=== PATIENT | female | born 1985 | race Caucasian/White ===

== ENCOUNTER 2016-09-29 20:16 | Inpatient (IN) | payer OTHER ==
[2016-09-29 20:42] VITALS: BMI 26.9
--- NOTE | 2016-09-29 21:26 | HP ---
COWS - Scale Resting Pulse: 0= [place] 80 or Below Sweatin= Chills/Flushing Restless Observation: 3= Extraneous Movement Pupil Size: 0= Normal to Room Light Bone or Joint Aches: 2= Severe Diffuse Aches Runny Nose/ Eye Tearin= Nasal Congestion GI Upset > 30mins: 0= None Tremor Observation: 2= Slight Tremor Visible Yawning Observation: 2= >3x During Session Anxiety or Irritability: 2=Irritable/Anxious Goose Flesh Skin: 3=Piloerection COWS Score: 16 CIWA Score - CIWA Score Nausea/Vomitin Muscle Tremors: 3 Anxiety: 4-Mod. Anxious/Guarded Agitation: 4-Moderately Restless Paroxysmal Sweats: No Perspiration Orientation: 0-Oriented Tacttile Disturbances: 0-None Auditory Disturbances: 0-None Visual Disturbances: 0-None Headache: 1-Very Mild CIWA-Ar Total Score: 14 Admission ROS S - HPI Chief Complaint: WITHDRAWAL SYMPTOMS Allergies/Adverse Reactions: Allergies Allergy/AdvReac Type Severity Reaction Status Date / Time amoxicillin [Amoxicillin] Allergy Severe Rash Verified 03/25/16 11:51 Penicillins Allergy Severe Rash Verified 03/25/16 11:51 History of Present Illness: 30 Y.O. WOMAN WITH AN EXTENSIVE HISTORY OF DRUG AND ALCOHOL DEPENDENCE. SHE WAS PREVIOUSLY HERE FOR DETOX IN 02/2016. SHE REPORTS HAVING A YEAR OF SOBRIETY IN THE PAST. Exam Limitations: No Limitations - Ebola screening Have you traveled outside of the country in the last 21 days: No (N) Have you had contact with anyone from an Ebola affected area: No Have you been sick,other than usual withdrawal symptoms: No Do you have a fever: No - Review of Systems Constitutional: Chills EENT: reports: No Symptoms Reported Respiratory: reports: No Symptoms reported Cardiac: reports: No Symptoms Reported GI: reports: Constipated : reports: No Symptoms Reported Musculoskeletal: reports: Back Pain Integumentary: reports: Bruising Neuro: reports: Tremors Endocrine: reports: No Symptoms Reported Hematology: reports: Anemia Psychiatric: reports: Orientated x3, Depressed Other Systems: Reviewed and Negative Patient History - Patient Medical History Hx Anemia: Yes Hx Asthma: No Hx Chronic Obstructive Pulmonary Disease (COPD): No Hx Cancer: No Hx Cardiac Disorders: No Hx Congestive Heart Failure: No Hx Hypertension: No Hx Hypercholesterolemia: No Hx Pacemaker: No HX Cerebrovascular Accident: No Hx Seizures: No Hx Dementia: No Hx Diabetes: No Hx Gastrointestinal Disorders: Yes (DYPEPSIA ) Hx Liver Disease: No Hx Genitourinary Disorders: No Hx Sexually Transmitted Disorders: No Hx Renal Disease (ESRD): No Hx Thyroid Disease: No Hx Human Immunodeficiency Virus (HIV): No (NEGATIVE HX) Hx Hepatitis C: No Hx Depression: Yes (not on any meds now) Hx Suicide Attempt: No (DENIES) Hx Bipolar Disorder: No Hx Schizophrenia: No - Patient Surgical History Past Surgical History: Yes Hx Neurologic Surgery: No Hx Cataract Extraction: No Hx Cardiac Surgery: No Hx Lung Surgery: No Hx Breast Surgery: No Hx Breast Biopsy: No Hx Abdominal Surgery: No Hx Appendectomy: No Hx Cholecystectomy: No Hx Genitourinary Surgery: No Hx Section: No Hx Orthopedic Surgery: No Other Surgical History: DILATATION AND CURETTAGE-ABORTIONS X 2 IN 2009 AND 2011 Anesthesia Reaction: No - PPD History Previous Implant?: Yes Documented Results: Negative w/proof Implanted On Prior [facility] Admission?: Yes Date: 03/27/16 Results: 0 mm PPD to be Administered?: No - Reproductive History Patient is a Female of Child Bearing Age (11 -55 yrs old): Yes Last Menstrual Period: 08/14/16 (states her menstruation is irregular when she "uses") Patient : No - Smoking Cessation Smoking history: Current every day smoker Have you smoked in the past 12 months: Yes Aproximately how many cigarettes per day: 20 Hx Chewing Tobacco Use: No Initiated information on smoking cessation: Yes 'Breaking Loose' booklet given: 09/29/16 - Substance & Tx. History Hx Alcohol Use: Yes Hx Substance Use: Yes Substance Use Type: Alcohol, Cocaine, Heroin Hx Substance Use Treatment: Yes (DETOX AND REHAB ) - Substances Abused Alcohol Route: Oral Frequency: Daily Amount used: 1/2 GALLON OF LIQUOR Age of first use: 14 Date of Last Use: 09/29/16 Heroin Route: Injection Frequency: Daily Amount used: 30 BAGS Age of first use: 24 Date of Last Use: 09/29/16 Cocaine Route: Injection Frequency: 1-2 times per week Amount used: $20 Age of first use: 29 Date of Last Use: 09/27/16 Family Disease History - Family Disease History Family Disease History: [place]: Father (HX THROAT CANCER-ALIVE), Mother (HX HYPOGLYCEMIA; BREAST CANCER--ALIVE), Other: Father, Mother Admission Physical Exam [facility] - Vital Signs Vital Signs: Vital Signs - 24 hr 09/29/16 20:37 Temperature 97.4 F L Pulse Rate 80 Respiratory 18 Rate Blood Pressure 118/63 - Physical General Appearance: Yes: Tremorous, Irritable, Sweating, Anxious HEENTM: Yes: EOMI, Hearing grossly Normal, Normal ENT Inspection, Normocephalic , Normal Voice Respiratory: Yes: Chest Non-Tender, Lungs Clear, Normal Breath Sounds Neck: Yes: No masses,lesions,Nodules, Supple, Trachea in good position Breast: Yes: Breast Exam Deferred Cardiology: Yes: Regular Rhythm, Regular Rate, S1, S2 Abdominal: Yes: Normal Bowel Sounds, Non Tender, Flat, Soft Genitourinary: Yes: Within Normal Limits Back: Yes: Normal Inspection Musculoskeletal: Yes: full range of Motion, Gait Steady, Back pain Extremities: Yes: Normal Capillary Refill, Normal Inspection, Normal Range of Motion, Non-Tender Neurological: Yes: Fully Oriented, Alert, Normal Mood/Affect, Normal Response Integumentary: Yes: Track [place] Lymphatic: Yes: Within Normal Limits - Diagnostic (1) Nicotine dependence Current Visit: Yes Status: Chronic (2) Cocaine dependence Current Visit: Yes Status: Chronic Qualifiers: Substance use status: uncomplicated Qualified Code(s): F14.20 - Cocaine dependence, uncomplicated (3) GERD (gastroesophageal reflux disease) Current Visit: Yes Status: Chronic (4) Opioid dependence with withdrawal Current Visit: Yes Status: Chronic (5) Alcohol dependence with uncomplicated withdrawal Current Visit: Yes Status: Chronic Cleared for Admission [facility] - Detox or Rehab [facility] Level of Care: Medically Managed Detox Regimen/Protocol: Methadone/Librium [facility] Breath Alcohol Content Breath Alcohol Content: 0 Urine Pregancy Test - Result Urine Test Results: Negative- NO Line Present Urine Drug Screen - Results Drug Screen Negative: No Urine Drug Screen Results: MAVIS-Cocaine, OPI-Opiates, OXY-Oxycodone
[2016-09-29] MEDS ORDERED: METHADONE HCL 10 MG TABLET (FOR DETOX USE ONLY) PO ONE ×2 (21:36→23:00)
[2016-09-29] MEDS ORDERED: LOPERAMIDE HCL 2 MG CAPSULE PO PRN (21:36)
[2016-09-29] MEDS ORDERED: guaiFENesin/D-METHORPHAN HB 10 ML UNIT-DOSE CUPS PO PRN (21:36)
[2016-09-29] MEDS ORDERED: ACETAMINOPHEN 325 MG TABLET (FP) PO PRN (21:36)
[2016-09-29] MEDS ORDERED: MAG HYDROX/AL HYDROX/SIMETH 30 ML UNIT-DOSE CUP PO PRN (21:36)
[2016-09-29] MEDS ORDERED: MAGNESIUM HYDROX 2400MG/30ML ORAL SUSPENSION 30 ML CUP PO PRN (21:36)
[2016-09-29] MEDS ORDERED: MENTHOL/PHENOL 1 EACH UD MM PRN (21:36)
[2016-09-29] MEDS ORDERED: MAGNESIUM CITRATE 300 ML BOTTLE PO PRN (21:36)
[2016-09-29] MEDS ORDERED: P-EPHED 60MG/TRIPROLIDI 2.5MG TABLET PO PRN (21:36)
[2016-09-29] MEDS ORDERED: METHADONE HCL 10 MG TABLET (FOR DETOX USE ONLY) ONE (23:53)
[2016-09-29] MEDS: chlordiazePOXIDE HCL 25 MG CAPSULE PO SCH (23:54)
[2016-09-29] MEDS: NICOTINE POLACRILEX 2 MG GUM BC PRN (23:55)
[2016-09-29] MEDS: diphenhydrAMINE HCL 50 MG CAPSULE PO PRN (23:58)
[2016-09-30] MEDS: chlordiazePOXIDE HCL 25 MG CAPSULE PO SCH ×4 (05:00→22:11)
[2016-09-30] MEDS: chlordiazePOXIDE HCL 25 MG CAPSULE PO PRN ×2 (07:35→13:49)
[2016-09-30] MEDS: NICOTINE POLACRILEX 2 MG GUM BC PRN ×4 (07:35→20:26)
--- NOTE | 2016-09-30 08:52 | PN ---
S CIWA - CIWA Score Nausea/Vomitin Muscle Tremors: 3 Anxiety: 3 Agitation: 3 Paroxysmal Sweats: 1-Minimal Palms Moist Orientation: 0-Oriented Tacttile Disturbances: 1-Very Mild Itch/Numbness Auditory Disturbances: 1-Very Mild Visual Disturbances: 1-Very Mild Sensitivity Headache: 2-Mild CIWA-Ar Total Score: 18 BHS Progress Note (SOAP) Subjective: ALERT,IRRITABLE,ANXIOUS,INTERRUPTED SLEEP,TREMOR,PAIN IN THE BODY AND BACK, TREMOR Objective: 09/30/16 08:50 Vital Signs Temperature 97.6 F 09/30/16 06:19 Pulse Rate 60 09/30/16 06:19 Respiratory Rate 16 09/30/16 06:19 Blood Pressure 100/60 09/30/16 06:19 O2 Sat by Pulse Oximetry (%) 09/30/16 08:50 EKG NSR,NORMAL ECGLABS PENDING Assessment: 09/30/16 08:51 WITHDRAWAL SYMPTOM Plan: CONTINUE DETOX
[2016-09-30] MEDS ORDERED: METHADONE HCL 10 MG TABLET (FOR DETOX USE ONLY) PO SCH (10:00)
[2016-09-30] MEDS: NICOTINE 21 MG/24 HOURS TOPICAL PATCH TD SCH (10:04)
[2016-09-30] MEDS: PRENATAL VITAMINS W/ FOLIC ACID TABLET (FP) PO SCH (10:04)
[2016-09-30 11:24] LABS: MCH 27.5 pg (25.7-33.7); MCHC 33.4 g/dl (32.0-36.0); MEAN CELL VOLUME 82.3 fl (80-96); MEAN PLT VOLUME 8.6 fl (7.5-11.1); PLATELET COUNT 207 K/MM3 (134-434); RDW 14.8 % (11.6-15.6); WHITE BLOOD COUNT 6.3 K/mm3 (4.0-10.0)
[2016-09-30 11:31] LABS: ALBUMIN 3.1 g/dl (3.4-5.0); ALK PHOS 77 U/L (45-117); ANION GAP 8 (8-16); BILIRUBIN,TOTAL 0.4 mg/dL (0.2-1.0); CALCIUM 8.4 mg/dL (8.5-10.1); CO2 28 mmol/L (21-32); GLUCOSE,RANDOM 80 mg/dL (74-106); SGOT/AST 19 U/L (15-37); SGPT/ALT 17 U/L (12-78); TOT PROT 7.2 g/dl (6.4-8.2)
[2016-09-30 12:56] LABS: URINE APPEARANCE TURBID; URINE BILIRUBIN NEGATIVE (NEGATIVE); URINE BLOOD NEGATIVE (NEGATIVE); URINE COLOR AMBER; URINE GLUCOSE (UA) NEGATIVE (NEGATIVE); URINE KETONE NEGATIVE (NEGATIVE); URINE NITRITE NEGATIVE (NEGATIVE); URINE PROTEIN NEGATIVE (NEGATIVE); URINE UROBILINOGEN NEGATIVE E.U./dl (0.2-1.0)
[2016-09-30 13:01] LABS: URINE LEUK ESTERASE TRACE (NEGATIVE)
[2016-09-30 13:11] LABS: URINE BACTERIA MODERATE /hpf (NONE SEEN); URINE RBC 3 /hpf (0-3); URINE WBC 23 /hpf (3-5)
[2016-09-30] MEDS: IBUPROFEN 400 MG TABLET (FP) PO PRN (13:48)
[2016-09-30 14:12] LABS: HIV 1 & 2 AB NEGATIVE; HIV 1 AGp24 NEGATIVE
--- NOTE | 2016-09-30 14:49 | CONSULT ---
[facility] Psychiatric Consult - Data Date of interview: 09/30/16 Admission source: [facility] Identifying data: Another admission to [facility] for this 30 y/o female seeking detox treatment on for alcohol,cocaine and heroin dependence.Patient is ( committed suicide four years ago),a mother of one,domiciled,unemployed and supported on Social Security benefits. Substance Abuse History: - Smoking Cessation. Smoking history: Current every day smoker. Have you smoked in the past 12 months: Yes. Aproximately how many cigarettes per day: 20. Hx Chewing Tobacco Use: No. Initiated information on smoking cessation: Yes. 'Breaking Loose' booklet given: 09/29/16. - Substance & Tx. History. Hx Alcohol Use: Yes. Hx Substance Use: Yes. Substance Use Type : Alcohol, Cocaine, Heroin. Hx Substance Use Treatment: Yes (DETOX AND REHAB ) . - Substances Abused. Alcohol. Route: Oral. Frequency: Daily. Amount used: 1/2 GALLON OF LIQUOR. Age of first use: 14. Date of Last Use: 09/29/16. Heroin. Route: Injection. Frequency: Daily. Amount used: 30 BAGS. Age of first use: 24. Date of Last Use: 09/29/16. Cocaine. Route: Injection. Frequency: 1-2 times per week. Amount used: $20. Age of first use: 29. Date of Last Use: 09/27/16. Confirmed by patient in this interview. Medical History: Patient endorses good general health.History of dilatation and curetage (abortions X 2) in 2009 and 2011. Psychiatric History: No history of psychiatric hospitalizations.Patient states that,at an inpatient rehabilitation facility in [place] (2014),she was managed on a regimen of trazodone for insomnia and gabapentin (anxiety).Ms Barlow reports that she has not taking any medication since her discharge from [facility] (02/2016).Patient states that she discharged herself from [place] rehabilitation inpatient program (referral from [facility]) and resumed the lifestyle of substance abuse.No OPD care affiliation.Distant history of suicide attempt via overdose with tylenol (age 15).Ms Barlow requests that gabapentin and trazodone be part of her current regimen of medications. Physical/Sexual Abuse/Trauma History: No reported history of sexual abuse.Lost her to a completed suicide four years ago.Patient denies nightmares or flashbacks. Additional Comment: Urine Drug Screen Results: MAVIS-Cocaine, OPI-Opiates, OXY- Oxycodone Mental Status Exam - Mental Status Exam Alert and Oriented to: Time, Place, Person Cognitive Function: Good Patient Appearance: Well Groomed Mood: Nervous, Anxious, Apprehensive Affect: Mood Congruent Patient Behavior: Fatigued, Appropriate, Cooperative Speech Pattern: Clear, Appropriate Voice Loudness: Normal Thought Process: Intact, Goal Oriented Thought Disorder: Not Present Hallucinations: Denies Suicidal Ideation: Denies Homicidal Ideation: Denies Insight/Judgement: Poor Sleep: Poorly, Difficulty falling asleep Appetite: Good Muscle strength/Tone: Normal Gait/Station: Normal Psychiatric Findings - Problem List ([place] 1, 2,3) (1) Alcohol dependence with uncomplicated withdrawal Current Visit: Yes Status: Acute (2) Cocaine dependence Current Visit: Yes Status: Acute Qualifiers: Substance use status: uncomplicated Qualified Code(s): F14.20 - Cocaine dependence, uncomplicated (3) Nicotine dependence Current Visit: Yes Status: Acute (4) Opioid dependence with withdrawal Current Visit: Yes Status: Acute (5) Drug-induced mood disorder Current Visit: Yes Status: Acute (6) Substance-induced sleep disorder Current Visit: Yes Status: Acute (7) GERD (gastroesophageal reflux disease) Current Visit: Yes Status: Chronic (8) Low back pain Current Visit: Yes Status: Chronic - Initial Treatment Plan Initial Treatment Plan: Psychoeducation.Detoxification.Medications : trazodone 50 mg po hs + gabapentin 200 mg po tid.Side effects/benefits discussed with the patient.She agrees with this plan.Observation.
[2016-09-30] MEDS: hydrOXYzine PAMOATE 50 MG CAPSULE (FP) PO PRN (20:26)
[2016-09-30] MEDS ORDERED: traZODone HCL 50 MG TABLET (FP) PO SCH (22:00)
[2016-09-30] MEDS ORDERED: GABAPENTIN 300 MG CAPSULE (FP) PO SCH (22:00)
[2016-09-30] MEDS: traZODone HCL 50 MG TABLET (FP) PO SCH (22:11)
[2016-09-30] MEDS: THIAMINE HCL 100 MG TABLET (FP) PO SCH ×2 (22:11)
[2016-09-30] MEDS: GABAPENTIN 100 MG CAPSULE (FP) PO SCH (22:11)
[2016-10-01] MEDS: chlordiazePOXIDE HCL 25 MG CAPSULE PO PRN ×2 (02:26→15:04)
[2016-10-01] MEDS: NICOTINE POLACRILEX 2 MG GUM BC PRN ×6 (02:27→22:08)
[2016-10-01] MEDS: chlordiazePOXIDE HCL 25 MG CAPSULE PO SCH ×3 (05:09→17:20)
[2016-10-01] MEDS: GABAPENTIN 100 MG CAPSULE (FP) PO SCH ×3 (06:31→22:07)
[2016-10-01] MEDS: hydrOXYzine PAMOATE 50 MG CAPSULE (FP) PO PRN ×3 (06:31→18:38)
--- NOTE | 2016-10-01 09:31 | PN ---
[facility] CIWA - CIWA Score Nausea/Vomitin Muscle Tremors: 3 Anxiety: 3 Agitation: 2 Paroxysmal Sweats: 1-Minimal Palms Moist Orientation: 0-Oriented Tacttile Disturbances: 1-Very Mild Itch/Numbness Auditory Disturbances: 1-Very Mild Visual Disturbances: 1-Very Mild Sensitivity Headache: 2-Mild CIWA-Ar Total Score: 17 BHS Progress Note (SOAP) Subjective: ALERT,IRRITABLE,ANXIOUS,INTERRUPTED SLEEP,PAIN IN THE BODY Objective: 10/01/16 09:30 Vital Signs Temperature 98.2 F 10/01/16 06:27 Pulse Rate 111 H 10/01/16 06:27 Respiratory Rate 20 10/01/16 06:27 Blood Pressure 121/75 10/01/16 06:27 O2 Sat by Pulse Oximetry (%) Laboratory Last Values WBC 6.3 K/mm3 (4.0-10.0) 09/30/16 08:00 RBC 4.09 M/mm3 (3.60-5.2) 09/30/16 08:00 Hgb 11.3 GM/dL (10.7-15.3) D 09/30/16 08:00 Hct 33.7 % (32.4-45.2) 09/30/16 08:00 MCV 82.3 fl (80-96) 09/30/16 08:00 MCHC 33.4 g/dl (32.0-36.0) 09/30/16 08:00 RDW 14.8 % (11.6-15.6) 09/30/16 08:00 Plt Count 207 K/MM3 (134-434) 09/30/16 08:00 MPV 8.6 fl (7.5-11.1) 09/30/16 08:00 Sodium 140 mmol/L (136-145) 09/30/16 08:00 Potassium 4.2 mmol/L (3.5-5.1) 09/30/16 08:00 Chloride 104 mmol/L (98-107) 09/30/16 08:00 Carbon Dioxide 28 mmol/L (21-32) 09/30/16 08:00 Anion Gap 8 (8-16) 09/30/16 08:00 BUN 14 mg/dL (7-18) 09/30/16 08:00 Creatinine 1.0 mg/dL (0.55-1.02) 09/30/16 08:00 Creat Clearance w eGFR > 60 (>60) 09/30/16 08:00 Random Glucose 80 mg/dL (74-106) 09/30/16 08:00 Calcium 8.4 mg/dL (8.5-10.1) L 09/30/16 08:00 Total Bilirubin 0.4 mg/dL (0.2-1.0) 09/30/16 08:00 AST 19 U/L (15-37) D 09/30/16 08:00 ALT 17 U/L (12-78) D 09/30/16 08:00 Alkaline Phosphatase 77 U/L (45-117) D 09/30/16 08:00 Total Protein 7.2 g/dl (6.4-8.2) 09/30/16 08:00 Albumin 3.1 g/dl (3.4-5.0) L 09/30/16 08:00 Urine Color Katie 09/30/16 10:31 Urine Appearance Turbid 09/30/16 10:31 Urine pH 7.0 (5.0-8.0) 09/30/16 10:31 Ur Specific [place] 1.021 (1.001-1.035) 09/30/16 10:31 Urine Protein Negative (NEGATIVE) 09/30/16 10:31 Urine Glucose (UA) Negative (NEGATIVE) 09/30/16 10:31 Urine Ketones Negative (NEGATIVE) 09/30/16 10:31 Urine Blood Negative (NEGATIVE) 09/30/16 10:31 Urine Nitrite Negative (NEGATIVE) 09/30/16 10:31 Urine Bilirubin Negative (NEGATIVE) 09/30/16 10:31 Urine Urobilinogen Negative E.U./dl (0.2-1.0) 09/30/16 10:31 Ur Leukocyte Esterase Trace (NEGATIVE) H D 09/30/16 10:31 Urine RBC 3 /hpf (0-3) 09/30/16 10:31 Urine WBC 23 /hpf (3-5) 09/30/16 10:31 Ur Epithelial Cells Rare /hpf (FEW) 09/30/16 10:31 Urine Bacteria Moderate /hpf (NONE SEEN) 09/30/16 10:31 RPR Titer Nonreactive (NONREACTIVE) 09/30/16 08:00 HIV 1&2 Antibody Screen Negative 09/30/16 08:00 HIV P24 Antigen Negative 09/30/16 08:00 Assessment: 10/01/16 09:31 WITHDRAWAL SYMPTOM Plan: CONTINUE DETOX,REPEAT UA
[2016-10-01] MEDS: PRENATAL VITAMINS W/ FOLIC ACID TABLET (FP) PO SCH (10:58)
[2016-10-01] MEDS: METHADONE HCL 5 MG TABLET (FOR DETOX USE ONLY) PO SCH (10:58)
[2016-10-01] MEDS: NICOTINE 21 MG/24 HOURS TOPICAL PATCH TD SCH (10:59)
[2016-10-01 13:47] LABS: URINE APPEARANCE CLEAR; URINE BILIRUBIN NEGATIVE (NEGATIVE); URINE BLOOD NEGATIVE (NEGATIVE); URINE COLOR LTYELLOW; URINE GLUCOSE (UA) NEGATIVE (NEGATIVE); URINE KETONE NEGATIVE (NEGATIVE); URINE LEUK ESTERASE NEGATIVE (NEGATIVE); URINE NITRITE NEGATIVE (NEGATIVE); URINE PROTEIN NEGATIVE (NEGATIVE); URINE UROBILINOGEN NEGATIVE E.U./dl (0.2-1.0)
[2016-10-01] MEDS: IBUPROFEN 400 MG TABLET (FP) PO PRN (15:04)
[2016-10-01] MEDS: traZODone HCL 50 MG TABLET (FP) PO SCH (22:06)
[2016-10-01] MEDS: THIAMINE HCL 100 MG TABLET (FP) PO SCH (22:07)
[2016-10-01] MEDS: chlordiazePOXIDE 5 MG CAPSULE PO SCH (22:07)
--- NOTE | 2016-10-01 22:45 | EKG ---
Test Reason : Blood Pressure : / mmHG Vent. Rate : 076 BPM Atrial Rate : 076 BPM P-R Int : 000 ms QRS Dur : 108 ms QT Int : 372 ms P-R-T Axes : 000 078 073 degrees QTc Int : 418 ms POOR DATA QUALITY, INTERPRETATION MAY BE ADVERSELY AFFECTED LIKELY SINUS RHYTHM WITH 1ST DEGREE A-V BLOCK ABNORMAL ECG NO PREVIOUS ECGS AVAILABLE Confirmed by TAVON GILLIAM, UNIQUE ([id number]) on 10/01/2016 10:44:52 PM Referred By: Confirmed By:UNIQUE MONTES DE OCA MD
[2016-10-02] MEDS: diphenhydrAMINE HCL 50 MG CAPSULE PO PRN ×2 (01:22→22:39)
[2016-10-02] MEDS: chlordiazePOXIDE HCL 25 MG CAPSULE PO PRN ×5 (01:22→20:48)
[2016-10-02] MEDS: NICOTINE POLACRILEX 2 MG GUM BC PRN ×6 (01:24→20:24)
[2016-10-02] MEDS: GABAPENTIN 100 MG CAPSULE (FP) PO SCH (05:07)
[2016-10-02] MEDS: chlordiazePOXIDE 5 MG CAPSULE PO SCH ×3 (05:07→17:06)
[2016-10-02] MEDS ORDERED: IBUPROFEN 600 MG TABLET (FP) PO PRN (09:50)
--- NOTE | 2016-10-02 09:50 | PN ---
Psychiatric Progress Note Vital Signs: Vital Signs Period Temp Pulse Resp BP Sys/Mays Pulse Ox Last 24 Hr 98 F-99.1 F 76-90 16-18 98-111/53-71 Date of Session: 10/02/16 Chief Complaint:: Anxiety, insomnia HPI: Patient reports takijg prior to admission with good response". Gabapentin 300mg po bid, 900mg po qhs. Trazodone 150mg po qhs Current Medications: Active Medications Generic Name Dose Route Start Last Admin Trade Name Freq PRN Reason Stop Dose Admin Acetaminophen 650 mg 09/29/16 21:36 Tylenol - PO Q4H PRN FEVER OR PAIN Al Hydroxide/Mg Hydroxide 30 ml 09/29/16 21:36 Mylanta Oral Suspension - PO Q6H PRN DYSPEPSIA Chlordiazepoxide HCl 10 mg 10/02/16 23:00 Librium - PO 10/03/16 17:01 [id number] ALICIA Chlordiazepoxide HCl 25 mg 09/29/16 21:36 10/02/16 08:36 Librium - PO 10/02/16 21:36 25 mg Q4H PRN Administration WITHDRAWAL(CONT SUBST) Chlordiazepoxide HCl 15 mg 10/01/16 23:00 10/02/16 05:07 Librium - PO 10/02/16 17:01 15 mg [id number] ALICIA Administration Diphenhydramine HCl 50 mg 09/29/16 21:36 10/02/16 01:22 Benadryl - PO 50 mg HSMR1 PRN Administration INSOMNIA Eucalyptus/Menthol/Phenol/Sorbitol 1 each 09/29/16 21:36 Cepastat Lozenge - MM Q4H PRN SORE THROAT Gabapentin 300 mg 10/02/16 10:00 Neurontin - PO BID@1000,1700 ALICIA Gabapentin 900 mg 10/02/16 22:00 Neurontin - PO HS ALICIA Guaifenesin 10 ml 09/29/16 21:36 Robitussin Dm - PO Q6H PRN COUGH Hydroxyzine Pamoate 50 mg 09/29/16 21:36 10/01/16 18:38 Vistaril - PO 50 mg Q4H PRN Administration AGITATION Ibuprofen 400 mg 09/29/16 21:36 10/01/16 15:04 Motrin - PO 400 mg Q6H PRN Administration SEVERE PAIN Loperamide HCl 4 mg 09/29/16 21:36 Imodium - PO Q6H PRN DIARRHEA Magnesium Citrate 300 ml 09/29/16 21:36 Citroma - PO Q48H PRN CONSTIPATION Magnesium Hydroxide 30 ml 09/29/16 21:36 Milk Of Magnesia - PO DAILY PRN CONSTIPATION Methadone HCl 10 mg 10/03/16 10:00 Dolophine - PO 10/03/16 10:01 DAILY ALICIA Methadone HCl 15 mg 10/01/16 10:00 10/01/16 10:58 Dolophine - PO 10/02/16 10:01 15 mg DAILY ALICIA Administration Methadone HCl 5 mg 10/04/16 06:00 Dolophine - PO 10/04/16 06:01 DAILY@0600 [facility] Nicotine 21 mg 09/30/16 10:00 10/01/16 10:59 Nicoderm Patch - TD 21 mg DAILY ALICIA Administration Nicotine Polacrilex 2 mg 09/29/16 21:36 10/02/16 08:36 Nicorette Gum - BC 2 mg Q2H PRN Administration NICOTINE REPLACEMENT RX Multivit/Folic Acid/Iron 1 tab 09/30/16 10:00 10/01/16 10:58 Vitamins (Sjr) - PO 1 tab DAILY [facility] Administration Pseudoephedrine/Triprolidine 1 combo 09/29/16 21:36 09/30/16 17:57 Actifed - PO 1 combo TID PRN Administration NASAL CONGESTION Thiamine HCl 100 mg 09/29/16 22:00 10/01/16 22:07 Vitamin B1 - PO 100 mg HS [facility] Administration Trazodone HCl 150 mg 10/02/16 09:36 Desyrel - PO HS [facility] Medication(s) Change(s): Gabapentin 300mg po bid, 900mg po qhs. Trazodone 150mg po qhs Mental Status Exam - Mental Status Exam Alert and Oriented to: Person Cognitive Function: Fair Patient Appearance: Unkempt Mood: Sad Affect: Mood Congruent Patient Behavior: Cooperative Speech Pattern: Appropriate Voice Loudness: Mildly Soft/Quiet Thought Process: Goal Oriented Thought Disorder: Being Controlled Hallucinations: Denies Suicidal Ideation: Denies Homicidal Ideation: Denies Insight/Judgement: Fair Sleep: Difficulty falling asleep Appetite: Weight gain Muscle strength/Tone: Normal Gait/Station: Shuffling Additional Comments: Gabapentin 300mg po bid, 900mg po qhs. Trazodone 150mg po qhs Psychiatric Treatment Plan - Problem List (1) Alcohol dependence with uncomplicated withdrawal Current Visit: Yes (2) Cocaine dependence Current Visit: Yes Qualifiers: Substance use status: uncomplicated Qualified Code(s): F14.20 - Cocaine dependence, uncomplicated (3) Drug-induced mood disorder Current Visit: Yes (4) Nicotine dependence Current Visit: Yes (5) Opioid dependence with withdrawal Current Visit: Yes (6) Opioid dependence Current Visit: No (7) Alcohol dependence Current Visit: No Qualifiers: Substance use status: uncomplicated Qualified Code(s): F10.20 - Alcohol dependence, uncomplicated (8) Depressive disorder Current Visit: No Initial treatment plan: Gabapentin 300mg po bid, 900mg po qhs. Trazodone 150mg po qhs
--- NOTE | 2016-10-02 10:00 | PN ---
BHS Progress Note (SOAP) Subjective: shakes sweats restless legs body aches interrupted sleep irritable Objective: 10/02/16 09:52 Vital Signs Temperature 99.1 F 10/02/16 06:00 Pulse Rate 76 10/02/16 06:00 Respiratory Rate 18 10/02/16 06:00 Blood Pressure 111/70 10/02/16 06:00 O2 Sat by Pulse Oximetry (%) Laboratory Tests 09/30/16 09/30/16 09/30/16 08:00 08:00 08:00 WBC 6.3 RBC 4.09 Hgb 11.3 D Hct 33.7 MCV 82.3 MCHC 33.4 RDW 14.8 Plt Count 207 MPV 8.6 Sodium 140 Potassium 4.2 Chloride 104 Carbon Dioxide 28 Anion Gap 8 BUN 14 Creatinine 1.0 Creat Clearance w eGFR > 60 Random Glucose 80 Calcium 8.4 L Total Bilirubin 0.4 AST 19 D ALT 17 D Alkaline Phosphatase 77 D Total Protein 7.2 Albumin 3.1 L Urine Color Urine Appearance Urine pH Ur Specific [place] Urine Protein Urine Glucose (UA) Urine Ketones Urine Blood Urine Nitrite Urine Bilirubin Urine Urobilinogen Ur Leukocyte Esterase Urine RBC Urine WBC Ur Epithelial Cells Urine Bacteria RPR Titer Nonreactive HIV 1&2 Antibody Screen HIV P24 Antigen 09/30/16 09/30/16 10/01/16 08:00 10:31 13:30 WBC RBC Hgb Hct MCV MCHC RDW Plt Count MPV Sodium Potassium Chloride Carbon Dioxide Anion Gap BUN Creatinine Creat Clearance w eGFR Random Glucose Calcium Total Bilirubin AST ALT Alkaline Phosphatase Total Protein Albumin Urine Color Katie Ltyellow Urine Appearance Turbid Clear Urine pH 7.0 8.0 Ur Specific [place] 1.021 1.011 Urine Protein Negative Negative Urine Glucose (UA) Negative Negative Urine Ketones Negative Negative Urine Blood Negative Negative Urine Nitrite Negative Negative Urine Bilirubin Negative Negative Urine Urobilinogen Negative Negative Ur Leukocyte Esterase Trace H D Negative Urine RBC 3 Urine WBC 23 Ur Epithelial Cells Rare Urine Bacteria Moderate RPR Titer HIV 1&2 Antibody Screen Negative HIV P24 Antigen Negative awake/alert lying in bed no acute distress Assessment: 10/02/16 10:00 withdrawal sx Plan: continue detox increase fluids flexiril 10mg prn motrin 800 mg prn lidocaine patch
[2016-10-02] MEDS: PRENATAL VITAMINS W/ FOLIC ACID TABLET (FP) PO SCH (10:07)
[2016-10-02] MEDS: METHADONE HCL 5 MG TABLET (FOR DETOX USE ONLY) PO SCH (10:08)
[2016-10-02] MEDS: NICOTINE 21 MG/24 HOURS TOPICAL PATCH TD SCH (10:10)
[2016-10-02] MEDS: CYCLOBENZAPRINE HCL 10 MG TABLET (FP) PO PRN ×2 (10:10→20:21)
[2016-10-02] MEDS: GABAPENTIN 300 MG CAPSULE (FP) PO SCH ×3 (10:10→22:35)
--- NOTE | 2016-10-02 11:32 | EKG ---
Test Reason : Blood Pressure : / mmHG Vent. Rate : 069 BPM Atrial Rate : 069 BPM P-R Int : 196 ms QRS Dur : 088 ms QT Int : 374 ms P-R-T Axes : 055 078 060 degrees QTc Int : 400 ms NORMAL SINUS RHYTHM NORMAL ECG WHEN COMPARED WITH ECG OF 29-SEP-2016 23:41, [place] INTERVAL HAS INCREASED Confirmed by WILLIS NICHOLE MD ([id number]) on 10/02/2016 11:32:00 AM Referred By: Confirmed By:WILLIS NICHOLE MD
[2016-10-02] MEDS: LIDOCAINE 5% TOPICAL PATCH TP SCH (12:02)
[2016-10-02] MEDS: hydrOXYzine PAMOATE 50 MG CAPSULE (FP) PO PRN (12:02)
[2016-10-02] MEDS: IBUPROFEN 400 MG TABLET (FP) PO PRN (15:40)
[2016-10-02] MEDS ORDERED: GABAPENTIN 400 MG CAPSULE (FP) PO SCH (22:00)
[2016-10-02] MEDS: traZODone HCL 50 MG TABLET (FP) PO SCH (22:35)
[2016-10-02] MEDS: THIAMINE HCL 100 MG TABLET (FP) PO SCH (22:35)
[2016-10-02] MEDS: chlordiazePOXIDE HCL 10 MG CAPSULE PO SCH (22:37)
[2016-10-03] MEDS: hydrOXYzine PAMOATE 50 MG CAPSULE (FP) PO PRN ×3 (03:09→15:17)
[2016-10-03] MEDS: chlordiazePOXIDE HCL 10 MG CAPSULE PO SCH ×3 (05:45→17:23)
[2016-10-03] MEDS: NICOTINE POLACRILEX 2 MG GUM BC PRN ×5 (05:45→20:43)
[2016-10-03] MEDS: CYCLOBENZAPRINE HCL 10 MG TABLET (FP) PO PRN ×3 (05:45→22:15)
[2016-10-03] MEDS ORDERED: METHADONE HCL 10 MG TABLET (FOR DETOX USE ONLY) PO SCH (10:00)
[2016-10-03] MEDS: LIDOCAINE 5% TOPICAL PATCH TP SCH (10:51)
[2016-10-03] MEDS: GABAPENTIN 300 MG CAPSULE (FP) PO SCH ×3 (10:51→22:15)
[2016-10-03] MEDS: PRENATAL VITAMINS W/ FOLIC ACID TABLET (FP) PO SCH (10:51)
[2016-10-03] MEDS: NICOTINE 21 MG/24 HOURS TOPICAL PATCH TD SCH (10:52)
[2016-10-03] MEDS: IBUPROFEN 400 MG TABLET (FP) PO PRN ×2 (10:55→17:23)
--- NOTE | 2016-10-03 11:49 | PN ---
BHS Progress Note (SOAP) Subjective: shakes, nasal congestion , , bodyaches Objective: 10/03/16 11:45 Vital Signs Temperature 97.7 F 10/03/16 09:47 Pulse Rate 93 H 10/03/16 09:47 Respiratory Rate 16 10/03/16 09:47 Blood Pressure 123/72 10/03/16 09:47 O2 Sat by Pulse Oximetry (%) Laboratory Last Values WBC 6.3 K/mm3 (4.0-10.0) 09/30/16 08:00 RBC 4.09 M/mm3 (3.60-5.2) 09/30/16 08:00 Hgb 11.3 GM/dL (10.7-15.3) D 09/30/16 08:00 Hct 33.7 % (32.4-45.2) 09/30/16 08:00 MCV 82.3 fl (80-96) 09/30/16 08:00 MCHC 33.4 g/dl (32.0-36.0) 09/30/16 08:00 RDW 14.8 % (11.6-15.6) 09/30/16 08:00 Plt Count 207 K/MM3 (134-434) 09/30/16 08:00 MPV 8.6 fl (7.5-11.1) 09/30/16 08:00 Sodium 140 mmol/L (136-145) 09/30/16 08:00 Potassium 4.2 mmol/L (3.5-5.1) 09/30/16 08:00 Chloride 104 mmol/L (98-107) 09/30/16 08:00 Carbon Dioxide 28 mmol/L (21-32) 09/30/16 08:00 Anion Gap 8 (8-16) 09/30/16 08:00 BUN 14 mg/dL (7-18) 09/30/16 08:00 Creatinine 1.0 mg/dL (0.55-1.02) 09/30/16 08:00 Creat Clearance w eGFR > 60 (>60) 09/30/16 08:00 Random Glucose 80 mg/dL (74-106) 09/30/16 08:00 Calcium 8.4 mg/dL (8.5-10.1) L 09/30/16 08:00 Total Bilirubin 0.4 mg/dL (0.2-1.0) 09/30/16 08:00 AST 19 U/L (15-37) D 09/30/16 08:00 ALT 17 U/L (12-78) D 09/30/16 08:00 Alkaline Phosphatase 77 U/L (45-117) D 09/30/16 08:00 Total Protein 7.2 g/dl (6.4-8.2) 09/30/16 08:00 Albumin 3.1 g/dl (3.4-5.0) L 09/30/16 08:00 Urine Color L[place]ellow 10/01/16 13:30 Urine Appearance Clear 10/01/16 13:30 Urine pH 8.0 (5.0-8.0) 10/01/16 13:30 Ur Specific [place] 1.011 (1.001-1.035) 10/01/16 13:30 Urine Protein Negative (NEGATIVE) 10/01/16 13:30 Urine Glucose (UA) Negative (NEGATIVE) 10/01/16 13:30 Urine Ketones Negative (NEGATIVE) 10/01/16 13:30 Urine Blood Negative (NEGATIVE) 10/01/16 13:30 Urine Nitrite Negative (NEGATIVE) 10/01/16 13:30 Urine Bilirubin Negative (NEGATIVE) 10/01/16 13:30 Urine Urobilinogen Negative E.U./dl (0.2-1.0) 10/01/16 13:30 Ur Leukocyte Esterase Negative (NEGATIVE) 10/01/16 13:30 Urine RBC 3 /hpf (0-3) 09/30/16 10:31 Urine WBC 23 /hpf (3-5) 09/30/16 10:31 Ur Epithelial Cells Rare /hpf (FEW) 09/30/16 10:31 Urine Bacteria Moderate /hpf (NONE SEEN) 09/30/16 10:31 RPR Titer Nonreactive (NONREACTIVE) 09/30/16 08:00 Hepatitis C Antibody 0.3 s/co ratio (0.0-0.9) 09/30/16 08:00 HIV 1&2 Antibody Screen Negative 09/30/16 08:00 HIV P24 Antigen Negative 09/30/16 08:00 pt aox3 in nad +nasal congestion Assessment: 10/03/16 11:46 withdrawl sx'x Plan: cont. detox increase fluids d/c in am
[2016-10-03] MEDS: THIAMINE HCL 100 MG TABLET (FP) PO SCH (22:15)
[2016-10-03] MEDS: traZODone HCL 50 MG TABLET (FP) PO SCH (22:15)
[2016-10-04] MEDS ORDERED: METHADONE HCL 5 MG TABLET (FOR DETOX USE ONLY) PO SCH (06:00)
[2016-10-04] MEDS: CYCLOBENZAPRINE HCL 10 MG TABLET (FP) PO PRN (06:31)
[2016-10-04] MEDS: NICOTINE POLACRILEX 2 MG GUM BC PRN (06:31)
[2016-10-04] MEDS: hydrOXYzine PAMOATE 50 MG CAPSULE (FP) PO PRN (06:31)
[2016-10-04 06:34] VITALS: TEMP 98.2
[2016-10-04] MEDS: IBUPROFEN 400 MG TABLET (FP) PO PRN (07:17)
[2016-10-04] MEDS ORDERED: LIDOCAINE VISCOUS 2% ORAL/TOP 20 ML UNIT-DOSE CUP MM ONE (08:48)
--- NOTE | 2016-10-04 08:51 | DS ---
[facility] Detox Discharge Summary Admission Date: 09/29/16 Discharge Date: 10/04/16 - History Present History: Alcohol Dependence, Cocaine Dependence, Opioid Dependence - Physical Exam Results Vital Signs: Vital Signs Temperature 98.2 F 10/04/16 06:00 Pulse Rate 87 10/04/16 06:00 Respiratory Rate 18 10/04/16 06:00 Blood Pressure 109/62 10/04/16 06:00 O2 Sat by Pulse Oximetry (%) - Treatment Hospital Course: Detox Protocol Followed, Detoxed Safely, Responded well, Discharged Condition Good, Rehab Referral Accepted - Medication Discharge Medications: Ambulatory Orders Quetiapine Fumarate [Seroquel] 100 mg PO HS #30 tablet 09/24/14 Gabapentin [Neurontin -] 300 mg PO TID 03/25/16 Gabapentin [Neurontin -] 600 mg PO HS 03/25/16 Gabapentin [Neurontin -] 300 mg PO BID@1000,1400 #60 capsule 03/27/16 Gabapentin [Neurontin -] 800 mg PO HS #30 capsule 03/27/16 Trazodone HCl [Desyrel -] 200 mg PO HS #30 tablet 03/27/16 Hydroxyzine Pamoate [Vistaril -] 50 mg PO Q6H PRN #30 capsule 03/30/16 Gabapentin [Neurontin -] 300 mg PO TID #60 capsule 09/30/16 Trazodone HCl [Desyrel -] 50 mg PO HS #30 tablet 09/30/16 Gabapentin [Neurontin -] 300 mg PO BID@1000,1700 #60 capsule 10/02/16 Gabapentin [Neurontin -] 600 mg PO HS #30 capsule 10/02/16 Trazodone HCl [Desyrel -] 150 mg PO HS #30 tablet 10/02/16 - Diagnosis (1) Alcohol dependence with uncomplicated withdrawal Current Visit: Yes Status: Chronic (2) Cocaine dependence Current Visit: Yes Status: Chronic Qualifiers: Substance use status: uncomplicated Qualified Code(s): F14.20 - Cocaine dependence, uncomplicated (3) Drug-induced mood disorder Current Visit: Yes Status: Acute (4) Nicotine dependence Current Visit: Yes Status: Chronic Qualifiers: Nicotine product type: cigarettes Substance use status: uncomplicated Qualified Code(s): F17.210 - Nicotine dependence, cigarettes, uncomplicated (5) Opioid dependence with withdrawal Current Visit: Yes Status: Chronic (6) Substance-induced sleep disorder Current Visit: Yes Status: Acute (7) GERD (gastroesophageal reflux disease) Current Visit: Yes Status: Chronic Qualifiers: Esophagitis presence: without esophagitis Qualified Code(s): K21.9 - Gastro-esophageal reflux disease without esophagitis (8) Low back pain Current Visit: Yes Status: Chronic Qualifiers: Chronicity: chronic (9) Bilateral cellulitis of lower leg Current Visit: No Status: Chronic (10) Depression Current Visit: No Status: Chronic Qualifiers: Major depression episode severity: unspecified (11) Depressive disorder Current Visit: No Status: Suspected - AMA Did Patient Leave Against Medical Advice: No
[2016-10-04 10:10] VITALS: BP 112/61; PULSE 92
== END 2016-10-04 09:25 | disposition home or self-care (01) | DRG 773 ==
LOC: YASAS 20:16 → Y6N 23:06
PROVIDERS: ADMIT Internal Medicine; ATTEND Internal Medicine
PROC: HZ2ZZZZ Detoxification Services for Substance Abuse Treatment (ICD-10-PCS; principal; 2016-10-04)
DX: F11.23 Opioid dependence with withdrawal (principal); F10.230 Alcohol dependence with withdrawal, uncomplicated; F14.20 Cocaine dependence, uncomplicated; F19.24 Other psychoactive substance dependence with psychoactive substance-induced mood disorder; F19.282 Other psychoactive substance dependence with psychoactive substance-induced sleep disorder; K21.9 Gastro-esophageal reflux disease without esophagitis; M54.5 Low back pain; G89.29 Other chronic pain
CPT/HCPCS: 36415; 80053; 81003; 81015; 85027; 86593; 87389; 93005; 93010

== ENCOUNTER 2016-11-25 13:48 | Inpatient (IN) | payer OTHER ==
[2016-11-25 14:20] VITALS: BMI 29.6
--- NOTE | 2016-11-25 16:01 | HP ---
COWS - Scale Resting Pulse: 0= [place] 80 or Below Sweatin=Flushed/Facial Moisture Restless Observation: 3= Extraneous Movement Pupil Size: 2= Moderately Dilated Bone or Joint Aches: 2= Severe Diffuse Aches Runny Nose/ Eye Tearin= Runny Nose/Eyes GI Upset > 30mins: 3= Vomiting/Diarrhea Tremor Observation: 2= Slight Tremor Visible Yawning Observation: 2= >3x During Session Anxiety or Irritability: 2=Irritable/Anxious Goose Flesh Skin: 0=Smooth Skin COWS Score: 20 CIWA Score - CIWA Score Nausea/Vomitin Muscle Tremors: 3 Anxiety: 3 Agitation: 3 Paroxysmal Sweats: 2 Orientation: 0-Oriented Tacttile Disturbances: 2-Mild Itch/Numbness/Burn Auditory Disturbances: 2-Mild Harshness/Frighten Visual Disturbances: 2-Mild Sensitivity Headache: 2-Mild CIWA-Ar Total Score: 22 Admission ROS BHS - HPI Chief Complaint: i need help to stop using heroin and alcohol Allergies/Adverse Reactions: Allergies Allergy/AdvReac Type Severity Reaction Status Date / Time amoxicillin [Amoxicillin] Allergy Severe Rash Verified 09/30/16 00:16 Penicillins Allergy Severe Rash Verified 09/30/16 00:16 History of Present Illness: this 30 yeas old female with heroin,alcohol,cocaine dependence,withdrawal symptom,last detox [facility] 09/29/16 to 10/04/16 nicotine dependence anxiety and depression insomnia longest sobriety 1 year Exam Limitations: No Limitations - Ebola screening Have you traveled outside of the country in the last 21 days: No Have you had contact with anyone from an Ebola affected area: No Have you been sick,other than usual withdrawal symptoms: No Do you have a fever: No - Review of Systems Constitutional: Chills, Diaphoresis, Loss of Appetite, Malaise, Night Sweats, Changes in sleep, Weakness EENT: reports: Tearing, Nose Congestion Respiratory: reports: No Symptoms reported Cardiac: reports: Palpitations GI: reports: Diarrhea, Nausea, Vomiting, Abdominal cramping : reports: No Symptoms Reported Musculoskeletal: reports: Back Pain, Joint Pain, Muscle Pain, Joint Stiffness Integumentary: reports: Dryness Neuro: reports: Headache, Tremors Endocrine: reports: No Symptoms Reported Hematology: reports: No Symptoms Reported Psychiatric: reports: Anxious, Depressed Patient History - Patient Medical History Hx Anemia: Yes Hx Asthma: No Hx Chronic Obstructive Pulmonary Disease (COPD): No Hx Cancer: No Hx Cardiac Disorders: No Hx Congestive Heart Failure: No Hx Hypertension: No Hx Hypercholesterolemia: No Hx Pacemaker: No HX Cerebrovascular Accident: No Hx Seizures: No Hx Dementia: No Hx Diabetes: No Hx Gastrointestinal Disorders: Yes (DYPEPSIA ) Hx Liver Disease: No Hx Genitourinary Disorders: No Hx Sexually Transmitted Disorders: No Hx Renal Disease (ESRD): No Hx Thyroid Disease: No Hx Human Immunodeficiency Virus (HIV): No (NEGATIVE HX last 09/29/16 ) Hx Hepatitis C: No Hx Depression: Yes (not on any meds now) Hx Suicide Attempt: No (DENIES) Hx Bipolar Disorder: No Hx Schizophrenia: No Other Medical History: no suicidal,no homicidal - Patient Surgical History Past Surgical History: Yes Hx Neurologic Surgery: No Hx Cataract Extraction: No Hx Cardiac Surgery: No Hx Lung Surgery: No Hx Breast Surgery: No Hx Breast Biopsy: No Hx Abdominal Surgery: No Hx Appendectomy: No Hx Cholecystectomy: No Hx Genitourinary Surgery: No Hx Section: No Hx Orthopedic Surgery: No Other Surgical History: DILATATION AND CURETTAGE-ABORTIONS X 2 IN 2009 AND 2011 Anesthesia Reaction: No - PPD History Previous Implant?: Yes Documented Results: Negative w/proof Date: 03/27/16 Results: 0 mm PPD to be Administered?: No - Reproductive History Patient is a Female of Child Bearing Age (11 -55 yrs old): Yes Last Menstrual Period: 09/13/16 Patient : No - Smoking Cessation Smoking history: Current every day smoker Have you smoked in the past 12 months: Yes Aproximately how many cigarettes per day: 20 Hx Chewing Tobacco Use: No Initiated information on smoking cessation: Yes 'Breaking Loose' booklet given: 11/25/16 - Substance & Tx. History Hx Alcohol Use: Yes Hx Substance Use: Yes Substance Use Type: Alcohol, Cocaine, Heroin Hx Substance Use Treatment: Yes ([facility] 09/29/16 to 10/04/16) - Substances Abused Heroin Route: Injection Frequency: Daily Amount used: 20 bags Age of first use: 26 Date of Last Use: 11/25/16 Alcohol Route: Oral Frequency: Daily Amount used: 1/5th vodka Age of first use: 15 Date of Last Use: 04/28/17 Cocaine Route: Injection Frequency: 1-2 times per week Amount used: 20$ Age of first use: 15 Date of Last Use: 11/22/16 Family Disease History - Family Disease History Family Disease History: [place]: Father (HX THROAT CANCER-ALIVE), Mother (HX HYPOGLYCEMIA; BREAST CANCER--ALIVE), Other: Father, Mother, Sister (dsa) Admission Physical Exam [facility] - Vital Signs Vital Signs: Vital Signs - 24 hr 11/25/16 14:17 Temperature 96 F L Pulse Rate 73 Respiratory 20 Rate Blood Pressure 90/46 - Physical General Appearance: Yes: Moderate Distress, Tremorous, Irritable, Sweating, Anxious HEENTM: Yes: Hearing grossly Normal, Normal ENT Inspection, KATE, Pharynx Normal Respiratory: Yes: Lungs Clear, Normal Breath Sounds, No Respiratory Distress Neck: Yes: Within Normal Limits Breast: Yes: Breast Exam Deferred Cardiology: Yes: Within Normal Limits, Regular Rhythm, Regular Rate, S1, S2 Abdominal: Yes: Within Normal Limits, Normal Bowel Sounds, Flat, Soft Genitourinary: Yes: Within Normal Limits Back: Yes: Muscle Spasm Musculoskeletal: Yes: full range of Motion, Back pain, Joint Stiffness, Muscle Pain Extremities: Yes: Within Normal Limits, Normal Range of Motion, Tremors 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 NML intact, Fully Oriented, Alert, Motor Strength 5/5 Integumentary: Yes: Dry Lymphatic: Yes: Within Normal Limits - Diagnostic (1) Alcohol dependence with uncomplicated withdrawal Current Visit: No Status: Chronic (2) Cocaine dependence Current Visit: No Status: Chronic Qualifiers: Substance use status: uncomplicated Qualified Code(s): F14.20 - Cocaine dependence, uncomplicated (3) Low back pain Current Visit: No Status: Chronic Qualifiers: Chronicity: chronic (4) Nicotine dependence Current Visit: No Status: Chronic Qualifiers: Nicotine product type: cigarettes Substance use status: uncomplicated Qualified Code(s): F17.210 - Nicotine dependence, cigarettes, uncomplicated (5) Opioid dependence with withdrawal Current Visit: No Status: Chronic (6) Insomnia Current Visit: Yes Status: Acute (7) Conjunctivitis, left eye Current Visit: Yes Status: Acute Cleared for Admission [facility] - Detox or Rehab [facility] Level of Care: Medically Managed Detox Regimen/Protocol: Methadone/Librium [facility] Breath Alcohol Content Breath Alcohol Content: 0 Urine Pregancy Test - Result Urine Test Results: Negative- NO Line Present Urine Drug Screen - Results Drug Screen Negative: No Urine Drug Screen Results: MAVIS-Cocaine, OPI-Opiates, BZO-Benzodiazepines, OXY- Oxycodone
[2016-11-25] MEDS ORDERED: IBUPROFEN 400 MG TABLET (FP) PO PRN (16:20)
[2016-11-25] MEDS ORDERED: MAG HYDROX/AL HYDROX/SIMETH 30 ML UNIT-DOSE CUP PO PRN (16:20)
[2016-11-25] MEDS ORDERED: ACETAMINOPHEN 325 MG TABLET (FP) PO PRN (16:20)
[2016-11-25] MEDS ORDERED: MAGNESIUM HYDROX 2400MG/30ML ORAL SUSPENSION 30 ML CUP PO PRN (16:20)
[2016-11-25] MEDS ORDERED: guaiFENesin/D-METHORPHAN HB 10 ML UNIT-DOSE CUPS PO PRN (16:20)
[2016-11-25] MEDS ORDERED: LOPERAMIDE HCL 2 MG CAPSULE PO PRN (16:20)
[2016-11-25] MEDS ORDERED: MENTHOL/PHENOL 1 EACH UD MM PRN (16:20)
[2016-11-25] MEDS ORDERED: METHADONE HCL 10 MG TABLET (FOR DETOX USE ONLY) PO ONE ×2 (16:20→23:00)
[2016-11-25] MEDS ORDERED: P-EPHED 60MG/TRIPROLIDI 2.5MG TABLET PO PRN (16:20)
[2016-11-25] MEDS ORDERED: MAGNESIUM CITRATE 300 ML BOTTLE PO PRN (16:20)
[2016-11-25] MEDS ORDERED: chlordiazePOXIDE HCL 25 MG CAPSULE PO ONE (18:00)
[2016-11-25] MEDS ORDERED: chlordiazePOXIDE HCL 25 MG CAPSULE ONE (20:07)
[2016-11-25] MEDS ORDERED: METHADONE HCL 10 MG TABLET (FOR DETOX USE ONLY) ONE (20:07)
[2016-11-25] MEDS: NICOTINE 21 MG/24 HOURS TOPICAL PATCH TD SCH (20:13)
[2016-11-25] MEDS: NICOTINE POLACRILEX 2 MG GUM BUC PRN (20:14)
[2016-11-25] MEDS: chlordiazePOXIDE HCL 25 MG CAPSULE PO SCH (22:28)
[2016-11-25] MEDS: THIAMINE HCL 100 MG TABLET (FP) PO SCH (22:28)
[2016-11-25] MEDS: cloNIDine HCL 0.1 MG TABLET PO SCH (22:28)
[2016-11-25] MEDS: diphenhydrAMINE HCL 50 MG CAPSULE PO PRN (22:29)
[2016-11-26] MEDS: chlordiazePOXIDE HCL 25 MG CAPSULE PO PRN (02:17)
[2016-11-26] MEDS: NICOTINE POLACRILEX 2 MG GUM BUC PRN ×3 (02:17→10:27)
[2016-11-26] MEDS: chlordiazePOXIDE HCL 25 MG CAPSULE PO SCH ×4 (05:27→22:28)
[2016-11-26] MEDS: CIPROFLOXACIN HCL 0.3% OPHTH 2.5ML BOTTLE OS SCH ×4 (06:00→22:27)
[2016-11-26] MEDS ORDERED: METHADONE HCL 10 MG TABLET (FOR DETOX USE ONLY) PO SCH (10:00)
[2016-11-26] MEDS: PRENATAL VITAMINS W/ FOLIC ACID TABLET (FP) PO SCH (10:23)
[2016-11-26] MEDS: NICOTINE 21 MG/24 HOURS TOPICAL PATCH TD SCH (10:24)
[2016-11-26] MEDS: cloNIDine HCL 0.1 MG TABLET PO SCH ×2 (10:24→22:28)
[2016-11-26] MEDS: CYCLOBENZAPRINE HCL 10 MG TABLET (FP) PO PRN ×2 (10:24→22:29)
[2016-11-26 10:27] LABS: MCH 27.1 pg (25.7-33.7); MEAN CELL VOLUME 82.3 fl (80-96); MEAN PLT VOLUME 8.8 fl (7.5-11.1); PLATELET COUNT 244 K/MM3 (134-434); RDW 15.3 % (11.6-15.6); WHITE BLOOD COUNT 6.8 K/mm3 (4.0-10.0)
[2016-11-26 10:40] LABS: ALBUMIN 3.5 g/dl (3.4-5.0); CALCIUM 8.8 mg/dL (8.5-10.1)
[2016-11-26 10:44] LABS: BILIRUBIN,TOTAL 0.5 mg/dL (0.2-1.0); COCKROFT - GAULT 94.4435; CREATININE 1.1 mg/dL (0.55-1.02); TOT PROT 7.9 g/dl (6.4-8.2)
--- NOTE | 2016-11-26 11:31 | PN ---
[facility] CIWA - CIWA Score Nausea/Vomitin Muscle Tremors: 3 Anxiety: 3 Agitation: 2 Paroxysmal Sweats: 1-Minimal Palms Moist Orientation: 0-Oriented Tacttile Disturbances: 1-Very Mild Itch/Numbness Auditory Disturbances: 1-Very Mild Visual Disturbances: 1-Very Mild Sensitivity Headache: 2-Mild CIWA-Ar Total Score: 17 BHS COWS - Scale Resting Pulse: 2= [place] 101-120 Sweatin= Chills/Flushing Restless Observation: 3= Extraneous Movement Pupil Size: 1= Pupils >than Normal Bone or Joint Aches: 2= Severe Diffuse Aches Runny Nose/ Eye Tearin= Runny Nose/Eyes GI Upset > 30mins: 3= Vomiting/Diarrhea Tremor Observation of Outstretched Hands: 2= Slight Tremor Visible Yawning Observation: 1= 1-2x During Session Anxiety or Irritability: 2=Irritable/Anxious Goose Flesh Skin: 0=Smooth Skin COWS Score: 19 [facility] Progress Note (SOAP) Subjective: ALERT,IRRITABLE,ANXIOUS,TREMOR,PAIN IN THE BODY,BACK,INTERRUPTED SLEEP Objective: 11/26/16 11:28 Vital Signs Temperature 98.4 F 11/26/16 10:09 Pulse Rate 105 H 11/26/16 10:09 Respiratory Rate 18 11/26/16 10:09 Blood Pressure 124/68 11/26/16 10:09 O2 Sat by Pulse Oximetry (%) EKG NSR,NORMAL ECG Laboratory Last Values WBC 6.8 K/mm3 (4.0-10.0) 11/26/16 07:50 RBC 4.37 M/mm3 (3.60-5.2) 11/26/16 07:50 Hgb 11.9 GM/dL (10.7-15.3) 11/26/16 07:50 Hct 36.0 % (32.4-45.2) 11/26/16 07:50 MCV 82.3 fl (80-96) 11/26/16 07:50 MCHC 33.0 g/dl (32.0-36.0) 11/26/16 07:50 RDW 15.3 % (11.6-15.6) 11/26/16 07:50 Plt Count 244 K/MM3 (134-434) 11/26/16 07:50 MPV 8.8 fl (7.5-11.1) 11/26/16 07:50 Sodium 138 mmol/L (136-145) 11/26/16 07:50 Potassium 3.9 mmol/L (3.5-5.1) 11/26/16 07:50 Chloride 103 mmol/L (98-107) 11/26/16 07:50 Carbon Dioxide 26 mmol/L (21-32) 11/26/16 07:50 Anion Gap 9 (8-16) 11/26/16 07:50 BUN 15 mg/dL (7-18) 11/26/16 07:50 Creatinine 1.1 mg/dL (0.55-1.02) H 11/26/16 07:50 Creat Clearance w eGFR 57.93 (>60) 11/26/16 07:50 Random Glucose 81 mg/dL (74-106) 11/26/16 07:50 Calcium 8.8 mg/dL (8.5-10.1) 11/26/16 07:50 Total Bilirubin 0.5 mg/dL (0.2-1.0) D 11/26/16 07:50 AST 20 U/L (15-37) 11/26/16 07:50 ALT 16 U/L (12-78) 11/26/16 07:50 Alkaline Phosphatase 80 U/L (45-117) 11/26/16 07:50 Total Protein 7.9 g/dl (6.4-8.2) 11/26/16 07:50 Albumin 3.5 g/dl (3.4-5.0) 11/26/16 07:50 LABS PENDING Assessment: 11/26/16 11:30 WITHDRAWAL SYMPTOM Plan: CONTINUE DETOX,ENCOURAGE ORAL FLUID
[2016-11-26 18:59] LABS: URINE APPEARANCE CLEAR; URINE BILIRUBIN NEGATIVE (NEGATIVE); URINE COLOR YELLOW; URINE GLUCOSE (UA) NEGATIVE (NEGATIVE); URINE KETONE NEGATIVE (NEGATIVE); URINE NITRITE NEGATIVE (NEGATIVE); URINE PROTEIN NEGATIVE (NEGATIVE); URINE UROBILINOGEN NEGATIVE E.U./dl (0.2-1.0)
[2016-11-26 19:02] LABS: URINE BLOOD 3+ (NEGATIVE); URINE LEUK ESTERASE 3+ (NEGATIVE)
[2016-11-26 19:06] LABS: URINE BACTERIA RARE /hpf (NONE SEEN); URINE MUCUS RARE; URINE RBC 6 /hpf (0-3); URINE WBC 41 /hpf (3-5)
[2016-11-26] MEDS: THIAMINE HCL 100 MG TABLET (FP) PO SCH (22:28)
--- NOTE | 2016-11-27 00:14 | EKG ---
Test Reason : Blood Pressure : / mmHG Vent. Rate : 065 BPM Atrial Rate : 065 BPM P-R Int : 178 ms QRS Dur : 100 ms QT Int : 396 ms P-R-T Axes : 047 072 051 degrees QTc Int : 411 ms NORMAL SINUS RHYTHM NORMAL ECG WHEN COMPARED WITH ECG OF 30-SEP-2016 07:24, NO SIGNIFICANT CHANGE WAS FOUND Confirmed by DILAN KEYES MD ([id number]) on 11/27/2016 12:13:59 AM Referred By: Confirmed By:DILAN KEYES MD
[2016-11-27] MEDS: chlordiazePOXIDE HCL 25 MG CAPSULE PO SCH ×3 (05:54→17:31)
[2016-11-27] MEDS: CIPROFLOXACIN HCL 0.3% OPHTH 2.5ML BOTTLE OS SCH ×6 (06:20→22:16)
[2016-11-27] MEDS: PRENATAL VITAMINS W/ FOLIC ACID TABLET (FP) PO SCH (10:25)
[2016-11-27] MEDS: NICOTINE 21 MG/24 HOURS TOPICAL PATCH TD SCH (10:25)
[2016-11-27] MEDS: METHADONE HCL 5 MG TABLET (FOR DETOX USE ONLY) PO SCH (10:32)
[2016-11-27] MEDS: cloNIDine HCL 0.1 MG TABLET PO SCH ×2 (10:33→22:15)
[2016-11-27] MEDS: CYCLOBENZAPRINE HCL 10 MG TABLET (FP) PO PRN ×2 (10:36→17:33)
--- NOTE | 2016-11-27 11:11 | PN ---
S CIWA - CIWA Score Nausea/Vomitin Muscle Tremors: 3 Anxiety: 3 Agitation: 2 Paroxysmal Sweats: 3 Orientation: 0-Oriented Tacttile Disturbances: 2-Mild Itch/Numbness/Burn Auditory Disturbances: 0-None Visual Disturbances: 0-None Headache: 0-None Present CIWA-Ar Total Score: 15 BHS COWS - Scale Resting Pulse: 0= [place] 80 or Below Sweatin=Flushed/Facial Moisture Restless Observation: 1= Difficult to Sit Still Pupil Size: 1= Pupils >than Normal Bone or Joint Aches: 2= Severe Diffuse Aches Runny Nose/ Eye Tearin= Nasal Congestion GI Upset > 30mins: 1= Stomach Cramp Tremor Observation of Outstretched Hands: 2= Slight Tremor Visible Yawning Observation: 1= 1-2x During Session Anxiety or Irritability: 2=Irritable/Anxious Goose Flesh Skin: 0=Smooth Skin COWS Score: 13 BHS Progress Note (SOAP) Subjective: interrupted sleep, sweats, aches/pains Objective: 11/27/16 11:09 Vital Signs Temperature 97.9 F 11/27/16 10:26 Pulse Rate 104 H 11/27/16 10:26 Respiratory Rate 20 11/27/16 10:26 Blood Pressure 94/68 11/27/16 10:26 O2 Sat by Pulse Oximetry (%) Laboratory Tests 11/26/16 11/26/16 11/26/16 07:50 07:50 07:50 WBC 6.8 RBC 4.37 Hgb 11.9 Hct 36.0 MCV 82.3 MCHC 33.0 RDW 15.3 Plt Count 244 MPV 8.8 Sodium 138 Potassium 3.9 Chloride 103 Carbon Dioxide 26 Anion Gap 9 BUN 15 Creatinine 1.1 H Creat Clearance w eGFR 57.93 Random Glucose 81 Calcium 8.8 Total Bilirubin 0.5 D AST 20 ALT 16 Alkaline Phosphatase 80 Total Protein 7.9 Albumin 3.5 Urine Color Urine Appearance Urine pH Ur Specific [place] Urine Protein Urine Glucose (UA) Urine Ketones Urine Blood Urine Nitrite Urine Bilirubin Urine Urobilinogen Ur Leukocyte Esterase Urine RBC Urine WBC Ur Epithelial Cells Urine Bacteria Urine Mucus RPR Titer Nonreactive 11/26/16 Unknown WBC RBC Hgb Hct MCV MCHC RDW Plt Count MPV Sodium Potassium Chloride Carbon Dioxide Anion Gap BUN Creatinine Creat Clearance w eGFR Random Glucose Calcium Total Bilirubin AST ALT Alkaline Phosphatase Total Protein Albumin Urine Color Yellow Urine Appearance Clear Urine pH 6.0 D Ur Specific [place] 1.016 Urine Protein Negative Urine Glucose (UA) Negative Urine Ketones Negative Urine Blood 3+ H Urine Nitrite Negative Urine Bilirubin Negative Urine Urobilinogen Negative Ur Leukocyte Esterase 3+ H Urine RBC 6 Urine WBC 41 Ur Epithelial Cells Rare Urine Bacteria Rare Urine Mucus Rare RPR Titer pt aox3 in nad lying in bed Assessment: 11/27/16 11:10 withdrawal sx;s Plan: cont. detox increase fluids motrin prn repeat u/a
[2016-11-27] MEDS: NICOTINE POLACRILEX 2 MG GUM BUC PRN (17:34)
[2016-11-27] MEDS: THIAMINE HCL 100 MG TABLET (FP) PO SCH (22:16)
[2016-11-27] MEDS: chlordiazePOXIDE 5 MG CAPSULE PO SCH (22:16)
[2016-11-27] MEDS: diphenhydrAMINE HCL 50 MG CAPSULE PO PRN (22:17)
[2016-11-28] MEDS: CIPROFLOXACIN HCL 0.3% OPHTH 2.5ML BOTTLE OS SCH ×5 (07:50→22:32)
[2016-11-28] MEDS: chlordiazePOXIDE 5 MG CAPSULE PO SCH ×3 (07:51→17:36)
[2016-11-28] MEDS: PRENATAL VITAMINS W/ FOLIC ACID TABLET (FP) PO SCH (10:18)
[2016-11-28] MEDS: cloNIDine HCL 0.1 MG TABLET PO SCH ×2 (10:18→22:33)
[2016-11-28] MEDS: METHADONE HCL 5 MG TABLET (FOR DETOX USE ONLY) PO SCH (10:18)
[2016-11-28] MEDS: NICOTINE POLACRILEX 2 MG GUM BUC PRN ×4 (10:20→22:35)
[2016-11-28] MEDS: NICOTINE 21 MG/24 HOURS TOPICAL PATCH TD SCH (10:23)
--- NOTE | 2016-11-28 10:33 | PN ---
BHS Progress Note (SOAP) Subjective: sweats body aches chills I need to see pych Objective: 11/28/16 10:32 Vital Signs Temperature 98.1 F 11/28/16 09:33 Pulse Rate 89 11/28/16 09:33 Respiratory Rate 18 11/28/16 09:33 Blood Pressure 108/68 11/28/16 09:33 O2 Sat by Pulse Oximetry (%) Laboratory Tests 11/26/16 11/26/16 11/26/16 07:50 07:50 07:50 WBC 6.8 RBC 4.37 Hgb 11.9 Hct 36.0 MCV 82.3 MCHC 33.0 RDW 15.3 Plt Count 244 MPV 8.8 Sodium 138 Potassium 3.9 Chloride 103 Carbon Dioxide 26 Anion Gap 9 BUN 15 Creatinine 1.1 H Creat Clearance w eGFR 57.93 Random Glucose 81 Calcium 8.8 Total Bilirubin 0.5 D AST 20 ALT 16 Alkaline Phosphatase 80 Total Protein 7.9 Albumin 3.5 Urine Color Urine Appearance Urine pH Ur Specific [place] Urine Protein Urine Glucose (UA) Urine Ketones Urine Blood Urine Nitrite Urine Bilirubin Urine Urobilinogen Ur Leukocyte Esterase Urine RBC Urine WBC Ur Epithelial Cells Urine Bacteria Urine Mucus RPR Titer Nonreactive 11/26/16 Unknown WBC RBC Hgb Hct MCV MCHC RDW Plt Count MPV Sodium Potassium Chloride Carbon Dioxide Anion Gap BUN Creatinine Creat Clearance w eGFR Random Glucose Calcium Total Bilirubin AST ALT Alkaline Phosphatase Total Protein Albumin Urine Color Yellow Urine Appearance Clear Urine pH 6.0 D Ur Specific [place] 1.016 Urine Protein Negative Urine Glucose (UA) Negative Urine Ketones Negative Urine Blood 3+ H Urine Nitrite Negative Urine Bilirubin Negative Urine Urobilinogen Negative Ur Leukocyte Esterase 3+ H Urine RBC 6 Urine WBC 41 Ur Epithelial Cells Rare Urine Bacteria Rare Urine Mucus Rare RPR Titer awake/alert ambulating no acute distress Assessment: 11/28/16 10:33 withdrawal sx Plan: continue detox increase fluids psych ordered d/c in am
[2016-11-28] MEDS: CYCLOBENZAPRINE HCL 10 MG TABLET (FP) PO PRN ×2 (12:19→20:29)
[2016-11-28 13:56] LABS: URINE APPEARANCE CLEAR; URINE BILIRUBIN NEGATIVE (NEGATIVE); URINE COLOR YELLOW; URINE GLUCOSE (UA) NEGATIVE (NEGATIVE); URINE KETONE NEGATIVE (NEGATIVE); URINE LEUK ESTERASE NEGATIVE (NEGATIVE); URINE NITRITE NEGATIVE (NEGATIVE); URINE UROBILINOGEN NEGATIVE E.U./dl (0.2-1.0)
[2016-11-28 14:00] LABS: URINE BLOOD 3+ (NEGATIVE)
[2016-11-28 14:01] LABS: URINE PROTEIN 1+ (NEGATIVE)
[2016-11-28 14:07] LABS: URINE BACTERIA RARE /hpf (NONE SEEN); URINE MUCUS MODERATE; URINE RBC 1384 /hpf (0-3); URINE WBC 9 /hpf (3-5)
[2016-11-28] MEDS: chlordiazePOXIDE HCL 25 MG CAPSULE PO PRN (14:51)
--- NOTE | 2016-11-28 16:25 | CONSULT ---
[facility] Psychiatric Consult - Data Date of interview: 11/28/16 Admission source: [facility] Identifying data: One of the multiple admissions to [facility] for this 30 y/o female seeking detox treatment on for alcohol,cocaine and heroin dependence.Patient is ( committed suicide four years ago), a mother of one,domiciled,unemployed and supported on Survivors benefits. Substance Abuse History: - Smoking Cessation. Smoking history: Current every day smoker. Have you smoked in the past 12 months: Yes. Aproximately how many cigarettes per day: 20. Hx Chewing Tobacco Use: No. Initiated information on smoking cessation: Yes. 'Breaking Loose' booklet given: 11/25/16. - Substance & Tx. History. Hx Alcohol Use: Yes. Hx Substance Use: Yes. Substance Use Type : Alcohol, Cocaine, Heroin. Hx Substance Use Treatment: Yes ([facility] 09/29/16 to 10/04/16). - Substances Abused. Heroin. Route: Injection. Frequency: Daily. Amount used: 20 bags. Age of first use: 26. Date of Last Use: . Alcohol. Route: Oral. Frequency: Daily. Amount used: 1/5th vodka. Age of first use: 15. Date of Last Use: 11/24/16. Cocaine. Route: Injection. Frequency: 1-2 times per week. Amount used: 20$. Age of first use : 15. Date of Last Use: 11/22/16. Confirmed by patient. Medical History: Patient endorses good general health. Psychiatric History: No history of psychiatric hospitalizations.Diagnosed with insomnia and Anxiety Disorder.Not compliant with psychiatric aftercare.Ms Barlow reports that she uses detox/rehab facilities for access to psychotropic medications.Has no contact with OPD clinics where she would see a psychiatrist on a regular basis.She was discharged from [facility] in September 2016.Did not follow up with referrals.At this point,the patient is about to run out of medications (seroquel,trazodone,gabapentin) that she received upon discharge.Ms Barlow wants to resume the same regimen in this hospital course.Distant history of suicide attempt via overdose with tylenol (age 15). Physical/Sexual Abuse/Trauma History: No reported history of sexual abuse.Traumatized by the suicide of her four years ago. Additional Comment: Urine Drug Screen Results: MAVIS-Cocaine, OPI-Opiates, BZO- Benzodiazepines, OXY-Oxycodone.Noted. Mental Status Exam - Mental Status Exam Alert and Oriented to: Time, Place, Person Cognitive Function: Good Patient Appearance: Well Groomed Mood: Anxious, Apprehensive Affect: Mood Congruent Patient Behavior: Fatigued, Cooperative (medication-seeking) Speech Pattern: Clear Voice Loudness: Normal Thought Process: Goal Oriented Thought Disorder: Not Present Hallucinations: Denies Suicidal Ideation: Denies Homicidal Ideation: Denies Insight/Judgement: Poor Sleep: Poorly, Difficulty falling asleep Appetite: Good Muscle strength/Tone: Normal Gait/Station: Normal Psychiatric Findings - Problem List ([place] 1, 2,3) (1) Alcohol dependence with uncomplicated withdrawal Current Visit: Yes Status: Acute (2) Cocaine dependence Current Visit: Yes Status: Acute Qualifiers: Substance use status: uncomplicated Qualified Code(s): F14.20 - Cocaine dependence, uncomplicated (3) Opioid dependence with withdrawal Current Visit: Yes Status: Acute (4) Nicotine dependence Current Visit: Yes Status: Acute Qualifiers: Nicotine product type: cigarettes Substance use status: uncomplicated Qualified Code(s): F17.210 - Nicotine dependence, cigarettes, uncomplicated (5) Drug-induced mood disorder Current Visit: Yes Status: Acute (6) Anxiety disorder Current Visit: Yes Status: Chronic (7) Insomnia Current Visit: Yes Status: Acute (8) GERD (gastroesophageal reflux disease) Current Visit: Yes Status: Chronic Qualifiers: Esophagitis presence: without esophagitis Qualified Code(s): K21.9 - Gastro-esophageal reflux disease without esophagitis (9) Low back pain Current Visit: Yes Status: Chronic Qualifiers: Chronicity: chronic - Initial Treatment Plan Initial Treatment Plan: Past records are reviewed.Psychoeducation.Detoxification.Medications are resumed as follows : seroquel 100 mg po hs + gabapentin 300 mg po tid + 600 mg po hs + trazodone 100 mg po hs and vistaril prn.Doses verified.Side effects/benefits of each drug are discussed with the patient.She is agreable with this careplan.Observation.
[2016-11-28] MEDS: GABAPENTIN 300 MG CAPSULE (FP) PO SCH ×2 (17:37→22:33)
[2016-11-28] MEDS: hydrOXYzine PAMOATE 50 MG CAPSULE (FP) PO PRN (20:29)
[2016-11-28] MEDS: QUEtiapine FUMARATE 100 MG TABLET (FP) PO SCH (22:33)
[2016-11-28] MEDS: THIAMINE HCL 100 MG TABLET (FP) PO SCH (22:33)
[2016-11-28] MEDS: traZODone HCL 100 MG TABLET (FP) PO SCH (22:33)
[2016-11-28] MEDS: chlordiazePOXIDE HCL 10 MG CAPSULE PO SCH (22:33)
[2016-11-29] MEDS: chlordiazePOXIDE HCL 10 MG CAPSULE PO SCH ×3 (05:58→17:25)
[2016-11-29] MEDS: CIPROFLOXACIN HCL 0.3% OPHTH 2.5ML BOTTLE OS SCH ×6 (05:58→22:37)
[2016-11-29] MEDS: GABAPENTIN 300 MG CAPSULE (FP) PO SCH ×4 (05:58→22:36)
[2016-11-29] MEDS ORDERED: METHADONE HCL 10 MG TABLET (FOR DETOX USE ONLY) PO SCH (10:00)
[2016-11-29] MEDS: PRENATAL VITAMINS W/ FOLIC ACID TABLET (FP) PO SCH (10:13)
[2016-11-29] MEDS: NICOTINE 21 MG/24 HOURS TOPICAL PATCH TD SCH (10:14)
[2016-11-29] MEDS: NICOTINE POLACRILEX 2 MG GUM BUC PRN ×4 (10:15→22:41)
[2016-11-29] MEDS: cloNIDine HCL 0.1 MG TABLET PO SCH ×2 (10:19→22:36)
--- NOTE | 2016-11-29 10:42 | PN ---
BHS Progress Note (SOAP) Subjective: feeling better but has an abscess behind rt knee Objective: 11/29/16 10:39 Vital Signs Temperature 98.2 F 11/29/16 09:39 Pulse Rate 96 H 11/29/16 09:39 Respiratory Rate 18 11/29/16 09:39 Blood Pressure 92/57 11/29/16 09:39 O2 Sat by Pulse Oximetry (%) Laboratory Tests 11/26/16 11/26/16 11/26/16 07:50 07:50 07:50 WBC 6.8 RBC 4.37 Hgb 11.9 Hct 36.0 MCV 82.3 MCHC 33.0 RDW 15.3 Plt Count 244 MPV 8.8 Sodium 138 Potassium 3.9 Chloride 103 Carbon Dioxide 26 Anion Gap 9 BUN 15 Creatinine 1.1 H Creat Clearance w eGFR 57.93 Random Glucose 81 Calcium 8.8 Total Bilirubin 0.5 D AST 20 ALT 16 Alkaline Phosphatase 80 Total Protein 7.9 Albumin 3.5 Urine Color Urine Appearance Urine pH Ur Specific [place] Urine Protein Urine Glucose (UA) Urine Ketones Urine Blood Urine Nitrite Urine Bilirubin Urine Urobilinogen Ur Leukocyte Esterase Urine RBC Urine WBC Ur Epithelial Cells Urine Bacteria Urine Mucus RPR Titer Nonreactive 11/26/16 11/28/16 Unknown 11:20 WBC RBC Hgb Hct MCV MCHC RDW Plt Count MPV Sodium Potassium Chloride Carbon Dioxide Anion Gap BUN Creatinine Creat Clearance w eGFR Random Glucose Calcium Total Bilirubin AST ALT Alkaline Phosphatase Total Protein Albumin Urine Color Yellow Yellow Urine Appearance Clear Clear Urine pH 6.0 D 6.0 Ur Specific [place] 1.016 1.016 Urine Protein Negative 1+ H Urine Glucose (UA) Negative Negative Urine Ketones Negative Negative Urine Blood 3+ H 3+ H Urine Nitrite Negative Negative Urine Bilirubin Negative Negative Urine Urobilinogen Negative Negative Ur Leukocyte Esterase 3+ H Negative Urine RBC 6 1384 Urine WBC 41 9 Ur Epithelial Cells Rare Rare Urine Bacteria Rare Rare Urine Mucus Rare Moderate RPR Titer pt aox3 in nad ambulating rt popliteal fossa abscess Assessment: 11/29/16 10:40 withdrawal sx's rt popliteal fossa Plan: cont. detox increase fluids warm compresses doxycycline 100mg bid d/c in am at 7am
[2016-11-29] MEDS ORDERED: DOXYCYCLINE HYCLATE 100 MG TABLET PO ONE (10:43)
[2016-11-29] MEDS: CYCLOBENZAPRINE HCL 10 MG TABLET (FP) PO PRN ×2 (14:19→22:39)
[2016-11-29] MEDS: hydrOXYzine PAMOATE 50 MG CAPSULE (FP) PO PRN ×2 (14:19→19:00)
[2016-11-29] MEDS ORDERED: DOXYCYCLINE HYCLATE 100 MG TABLET PO SCH (18:00)
[2016-11-29] MEDS: QUEtiapine FUMARATE 100 MG TABLET (FP) PO SCH (22:36)
[2016-11-29] MEDS: traZODone HCL 100 MG TABLET (FP) PO SCH (22:36)
[2016-11-29] MEDS: THIAMINE HCL 100 MG TABLET (FP) PO SCH (22:37)
[2016-11-30] MEDS: GABAPENTIN 300 MG CAPSULE (FP) PO SCH (05:48)
[2016-11-30] MEDS: CYCLOBENZAPRINE HCL 10 MG TABLET (FP) PO PRN (05:51)
[2016-11-30] MEDS: NICOTINE POLACRILEX 2 MG GUM BUC PRN (05:51)
[2016-11-30] MEDS: hydrOXYzine PAMOATE 50 MG CAPSULE (FP) PO PRN (05:51)
[2016-11-30] MEDS ORDERED: METHADONE HCL 5 MG TABLET (FOR DETOX USE ONLY) PO SCH (06:00)
[2016-11-30 06:09] VITALS: BP 105/59; PULSE 72; TEMP 98.1
--- NOTE | 2016-11-30 08:48 | DS ---
[facility] Detox Discharge Summary Admission Date: 11/25/16 Discharge Date: 11/30/16 - History Present History: Alcohol Dependence, Cocaine Dependence, Opioid Dependence - Physical Exam Results Vital Signs: Vital Signs Temperature 98.1 F 11/30/16 06:00 Pulse Rate 72 11/30/16 06:00 Respiratory Rate 18 11/30/16 06:00 Blood Pressure 105/59 11/30/16 06:00 O2 Sat by Pulse Oximetry (%) - Treatment Hospital Course: Detox Protocol Followed, Detoxed Safely, Responded well, Discharged Condition Good, Rehab Referral Accepted - Medication Discharge Medications: Ambulatory Orders Quetiapine Fumarate [Seroquel] 100 mg PO HS #30 tablet 09/24/14 Gabapentin [Neurontin -] 300 mg PO TID 03/25/16 Gabapentin [Neurontin -] 600 mg PO HS 03/25/16 Gabapentin [Neurontin -] 300 mg PO BID@1000,1400 #60 capsule 03/27/16 Gabapentin [Neurontin -] 800 mg PO HS #30 capsule 03/27/16 Trazodone HCl [Desyrel -] 200 mg PO HS #30 tablet 03/27/16 Hydroxyzine Pamoate [Vistaril -] 50 mg PO Q6H PRN #30 capsule 03/30/16 Gabapentin [Neurontin -] 300 mg PO TID #60 capsule 09/30/16 Trazodone HCl [Desyrel -] 50 mg PO HS #30 tablet 09/30/16 Gabapentin [Neurontin -] 300 mg PO BID@1000,1700 #60 capsule 10/02/16 Gabapentin [Neurontin -] 600 mg PO HS #30 capsule 10/02/16 Trazodone HCl [Desyrel -] 150 mg PO HS #30 tablet 10/02/16 - Diagnosis (1) Alcohol dependence with uncomplicated withdrawal Status: Chronic (2) Cocaine dependence Status: Chronic Qualifiers: Substance use status: uncomplicated Qualified Code(s): F14.20 - Cocaine dependence, uncomplicated (3) Conjunctivitis, left eye Status: Acute (4) Drug-induced mood disorder Status: Acute (5) Insomnia Status: Acute (6) Nicotine dependence Status: Chronic Qualifiers: Nicotine product type: cigarettes Substance use status: uncomplicated Qualified Code(s): F17.210 - Nicotine dependence, cigarettes, uncomplicated (7) Opioid dependence with withdrawal Status: Chronic (8) Substance-induced sleep disorder Status: Acute (9) Anxiety disorder Status: Chronic (10) Bilateral cellulitis of lower leg Status: Chronic (11) Depression Status: Chronic Qualifiers: Major depression episode severity: unspecified (12) GERD (gastroesophageal reflux disease) Status: Chronic Qualifiers: Esophagitis presence: without esophagitis Qualified Code(s): K21.9 - Gastro-esophageal reflux disease without esophagitis (13) Low back pain Status: Chronic Qualifiers: Chronicity: chronic (14) Depressive disorder Status: Suspected - AMA Did Patient Leave Against Medical Advice: No
== END 2016-11-30 07:13 | disposition home or self-care (01) | DRG 774 ==
LOC: YASAS 13:48 → Y6N 17:12
PROVIDERS: ADMIT Internal Medicine; ATTEND Internal Medicine Addiction Medicine
PROC: HZ2ZZZZ Detoxification Services for Substance Abuse Treatment (ICD-10-PCS; principal; 2016-11-25)
DX: F10.230 Alcohol dependence with withdrawal, uncomplicated (principal); F14.20 Cocaine dependence, uncomplicated; F17.210 Nicotine dependence, cigarettes, uncomplicated; F19.24 Other psychoactive substance dependence with psychoactive substance-induced mood disorder; F19.282 Other psychoactive substance dependence with psychoactive substance-induced sleep disorder; F41.9 Anxiety disorder, unspecified; F32.9 Major depressive disorder, single episode, unspecified; H10.32 Unspecified acute conjunctivitis, left eye; G47.00 Insomnia, unspecified; L03.116 Cellulitis of left lower limb; L03.115 Cellulitis of right lower limb; K21.9 Gastro-esophageal reflux disease without esophagitis; M54.5 Low back pain; G89.29 Other chronic pain; L02.415 Cutaneous abscess of right lower limb
CPT/HCPCS: 36415; 80053; 81003; 81015; 85027; 86593; 93005; 93010

== ENCOUNTER 2017-02-14 09:42 | Inpatient (IN) | payer OTHER ==
[2017-02-14 12:46] VITALS: BMI 31.3
--- NOTE | 2017-02-14 16:30 | HP ---
COWS - Scale Resting Pulse: 1= [place] 81-100 Sweatin=Flushed/Facial Moisture Restless Observation: 1= Difficult to Sit Still Pupil Size: 1= Pupils >than Normal Bone or Joint Aches: 2= Severe Diffuse Aches Runny Nose/ Eye Tearin= Runny Nose/Eyes GI Upset > 30mins: 1= Stomach Cramp Tremor Observation: 1= Tremor [place], Not Seen Yawning Observation: 0= None Anxiety or Irritability: 1=Feels Anxious/Irritable Goose Flesh Skin: 0=Smooth Skin COWS Score: 12 CIWA Score - CIWA Score Nausea/Vomitin Muscle Tremors: 2 Anxiety: 3 Agitation: 2 Paroxysmal Sweats: 3 Orientation: 0-Oriented Tacttile Disturbances: 2-Mild Itch/Numbness/Burn Auditory Disturbances: 0-None Visual Disturbances: 0-None Headache: 0-None Present CIWA-Ar Total Score: 14 Admission ROS BHS - HPI Chief Complaint: i need help to stop using heroin and coccaine Allergies/Adverse Reactions: Allergies Allergy/AdvReac Type Severity Reaction Status Date / Time amoxicillin [Amoxicillin] Allergy Severe Rash Verified 02/14/17 16:36 Penicillins Allergy Severe Rash Verified 02/14/17 16:36 History of Present Illness: 31 y/o f pt with h/o heroin and cocaine dep. seeking detox. Exam Limitations: No Limitations - Ebola screening Have you traveled outside of the country in the last 21 days: No Have you had contact with anyone from an Ebola affected area: No Have you been sick,other than usual withdrawal symptoms: No Do you have a fever: No - Review of Systems Constitutional: Loss of Appetite, Malaise, Night Sweats, Changes in sleep EENT: reports: Nose Congestion Psychiatric: reports: Agitated, Anxious, Depressed Patient History - Patient Medical History Hx Anemia: Yes Hx Asthma: No Hx Chronic Obstructive Pulmonary Disease (COPD): No Hx Cancer: No Hx Cardiac Disorders: No Hx Congestive Heart Failure: No Hx Hypertension: No Hx Hypercholesterolemia: No Hx Pacemaker: No HX Cerebrovascular Accident: No Hx Seizures: No Hx Dementia: No Hx Diabetes: No Hx Gastrointestinal Disorders: Yes (DYPEPSIA ) Hx Liver Disease: No Hx Genitourinary Disorders: No Hx Sexually Transmitted Disorders: No Hx Renal Disease (ESRD): No Hx Thyroid Disease: No Hx Human Immunodeficiency Virus (HIV): No (NEGATIVE HX last 09/29/16 ) Hx Hepatitis C: No Hx Depression: Yes (not on any meds now) Hx Suicide Attempt: No (DENIES) Hx Bipolar Disorder: No Hx Schizophrenia: No - Patient Surgical History Past Surgical History: Yes Hx Neurologic Surgery: No Hx Cataract Extraction: No Hx Cardiac Surgery: No Hx Lung Surgery: No Hx Breast Surgery: No Hx Breast Biopsy: No Hx Abdominal Surgery: No Hx Appendectomy: No Hx Cholecystectomy: No Hx Genitourinary Surgery: No Hx Section: No Hx Orthopedic Surgery: No Other Surgical History: DILATATION AND CURETTAGE-ABORTIONS X 2 IN 2009 AND 2011 Anesthesia Reaction: No - PPD History Previous Implant?: Yes Documented Results: Negative w/proof Implanted On Prior [facility] Admission?: Yes Date: 03/27/16 Results: 0 mm - Reproductive History Last Menstrual Period: 09/13/16 - Smoking Cessation Smoking history: Current every day smoker Have you smoked in the past 12 months: Yes Aproximately how many cigarettes per day: 20 Cigars Per Day: 0 Hx Chewing Tobacco Use: No Initiated information on smoking cessation: Yes 'Breaking Loose' booklet given: 02/14/17 - Substance & Tx. History Hx Substance Use: Yes Substance Use Type: Alcohol, Cocaine, Heroin Hx Substance Use Treatment: Yes ([facility] detox. ) - Substances Abused Alcohol Route: Oral Frequency: Daily Amount used: vodka 1pt/d Age of first use: 11 Date of Last Use: 02/13/17 Cocaine Route: Injection Frequency: 1-2 times per week Amount used: $20./use Age of first use: 14 Date of Last Use: 02/10/17 Heroin Route: Injection Frequency: Daily Amount used: 3-4 bundles/d Age of first use: 24 Date of Last Use: 02/14/17 Family Disease History - Family Disease History Family Disease History: [place]: Father (HX THROAT CANCER-ALIVE), Mother (HX HYPOGLYCEMIA; BREAST CANCER--ALIVE), Other: Father, Mother, Sister (dsa) Admission Physical Exam BHS - Vital Signs Vital Signs: Vital Signs - 24 hr 02/14/17 12:42 Temperature 98.3 F Pulse Rate 80 Respiratory 18 Rate Blood Pressure 101/58 54y/o f pt aox3 , cooperative with exam - Physical General Appearance: Yes: Appropriately Dressed, Obese, Sweating, Anxious HEENTM: Yes: EOMI, Hearing grossly Normal, Normocephalic, Normal Voice, KATE, Nasal Congestion Respiratory: Yes: Within Normal Limits Neck: Yes: Supple, Trachea in good position Breast: Yes: Breast Exam Deferred Cardiology: Yes: Regular Rhythm, Regular Rate, S1, S2 Abdominal: Yes: Increased Bowel Sounds Genitourinary: Yes: Within Normal Limits Back: Yes: Decreased Range of Motion Musculoskeletal: Yes: Back pain Extremities: Yes: Inflammation (lower ext. judith) Integumentary: Yes: Erythema (multiple abscesses on loer extremities judith. at sites of iv injections) - Diagnostic (1) Bilateral cellulitis of lower leg Current Visit: Yes Status: Chronic (2) Cocaine dependence Current Visit: Yes Status: Chronic Qualifiers: Substance use status: uncomplicated Qualified Code(s): F14.20 - Cocaine dependence, uncomplicated (3) Depression Current Visit: Yes Status: Chronic Qualifiers: Major depression episode severity: unspecified (4) GERD (gastroesophageal reflux disease) Current Visit: Yes Status: Chronic Qualifiers: Esophagitis presence: without esophagitis Qualified Code(s): K21.9 - Gastro-esophageal reflux disease without esophagitis (5) Low back pain Current Visit: Yes Status: Chronic Qualifiers: Chronicity: chronic (6) Nicotine dependence Current Visit: Yes Status: Chronic Qualifiers: Nicotine product type: cigarettes Substance use status: uncomplicated Qualified Code(s): F17.210 - Nicotine dependence, cigarettes, uncomplicated (7) Opioid dependence with withdrawal Current Visit: Yes Status: Chronic Cleared for Admission S - Detox or Rehab [facility] Level of Care: Medically Managed Detox Regimen/Protocol: Methadone/Librium [facility] Breath Alcohol Content Breath Alcohol Content: 0 Urine Pregancy Test - Result Urine Test Results: Negative- NO Line Present Urine Drug Screen - Results Drug Screen Negative: No Urine Drug Screen Results: MAVIS-Cocaine, BZO-Benzodiazepines
[2017-02-14] MEDS ORDERED: P-EPHED 60MG/TRIPROLIDI 2.5MG TABLET PO PRN (16:49)
[2017-02-14] MEDS ORDERED: MAGNESIUM HYDROX 2400MG/30ML ORAL SUSPENSION 30 ML CUP PO PRN (16:49)
[2017-02-14] MEDS ORDERED: diphenhydrAMINE HCL 50 MG CAPSULE PO PRN (16:49)
[2017-02-14] MEDS ORDERED: guaiFENesin/D-METHORPHAN HB 10 ML UNIT-DOSE CUPS PO PRN (16:49)
[2017-02-14] MEDS ORDERED: LOPERAMIDE HCL 2 MG CAPSULE PO PRN (16:49)
[2017-02-14] MEDS ORDERED: MAGNESIUM CITRATE 300 ML BOTTLE PO PRN (16:49)
[2017-02-14] MEDS ORDERED: MAG HYDROX/AL HYDROX/SIMETH 30 ML UNIT-DOSE CUP PO PRN (16:49)
[2017-02-14] MEDS ORDERED: hydrOXYzine PAMOATE 25 MG CAPSULE (FP) PO PRN (16:49)
[2017-02-14] MEDS ORDERED: IBUPROFEN 400 MG TABLET (FP) PO PRN (16:49)
[2017-02-14] MEDS ORDERED: MENTHOL/PHENOL 1 EACH UD MM PRN (16:49)
[2017-02-14] MEDS ORDERED: ACETAMINOPHEN 325 MG TABLET (FP) PO PRN (16:49)
[2017-02-14] MEDS ORDERED: METHADONE HCL 10 MG TABLET (FOR DETOX USE ONLY) PO ONE ×2 (17:45→23:00)
[2017-02-14] MEDS: chlordiazePOXIDE HCL 25 MG CAPSULE PO SCH ×2 (17:50→22:20)
[2017-02-14] MEDS: NICOTINE POLACRILEX 4 MG GUM BC PRN ×2 (17:52→22:22)
[2017-02-14] MEDS: THIAMINE HCL 100 MG TABLET (FP) PO SCH (22:20)
[2017-02-14] MEDS: SULFAMETHOXAZOLE/TRIMETHOPRIM 800MG/160MG D.S. TABLET PO SCH (22:20)
[2017-02-14 23:16] LABS: URINE APPEARANCE CLEAR; URINE BILIRUBIN NEGATIVE (NEGATIVE); URINE BLOOD NEGATIVE (NEGATIVE); URINE COLOR DKYELLOW; URINE GLUCOSE (UA) NEGATIVE (NEGATIVE); URINE KETONE TRACE (NEGATIVE); URINE LEUK ESTERASE NEGATIVE (NEGATIVE); URINE NITRITE NEGATIVE (NEGATIVE); URINE PROTEIN NEGATIVE (NEGATIVE); URINE UROBILINOGEN NEGATIVE mg/dL (0.2-1.0)
[2017-02-15] MEDS: chlordiazePOXIDE HCL 25 MG CAPSULE PO SCH ×4 (05:51→22:27)
[2017-02-15] MEDS: NICOTINE POLACRILEX 4 MG GUM BC PRN ×5 (05:53→22:30)
--- NOTE | 2017-02-15 08:21 | CONSULT ---
[facility] Psychiatric Consult - Data Date of interview: 02/15/17 Admission source: [facility] Identifying data: This is 31 years old female with no psychiatric hospitalization history intoxicated with: Alcohol, Cocaine, Heroin, Opioids and Nicotine Substance Abuse History: - Smoking Cessation. Smoking history: Current every day smoker. Have you smoked in the past 12 months: Yes. Aproximately how many cigarettes per day: 20. Cigars Per Day: 0. Hx Chewing Tobacco Use: No. Initiated information on smoking cessation: Yes. 'Breaking Loose' booklet given : 02/14/17. - Substance & Tx. History. Hx Substance Use: Yes. Substance Use Type: Alcohol, Cocaine, Heroin. Hx Substance Use Treatment: Yes ([facility] ). - Substances Abused. Alcohol. Route: Oral. Frequency: Daily. Amount used: vodka 1pt/d. Age of first use: 11. Date of Last Use: 02/13/17. * * Cocaine. Route: Injection. Frequency: 1-2 times per week. Amount used: $20. /use. Age of first use: 14. Date of Last Use: 02/10/17. Heroin. Route: Injection. Frequency: Daily. Amount used: 3-4 bundles/d. Age of first use: 24. Date of Last Use: 02/14/17 Medical History: History of cellulitis, GERD, LBP, Psychiatric History: Patient reports history of depression and anxiety, reports taking prior to admission: Trazodone 150mg p[o qhs. Seroquel 100mg pop qhs. Gabapentin 600mg po tiod. Vistaril 50mg po prn q4 for anxiety Physical/Sexual Abuse/Trauma History: Denies, unclear Additional Comment: Trazodone 150mg p[o qhs. Seroquel 100mg pop qhs. Gabapentin 600mg po tiod. Vistaril 50mg po prn q4 for anxiety Mental Status Exam - Mental Status Exam Alert and Oriented to: Person Cognitive Function: Fair Patient Appearance: Unkempt Mood: Sad Affect: Flat Patient Behavior: Sedated Speech Pattern: Delayed Voice Loudness: Mildly Soft/Quiet Thought Process: Goal Oriented Thought Disorder: Being Controlled Hallucinations: Denies Suicidal Ideation: Denies Homicidal Ideation: Denies Insight/Judgement: Fair Sleep: Difficulty falling asleep Appetite: Fair Muscle strength/Tone: Mild Hypotonicity Gait/Station: Shuffling Additional Comments: Trazodone 150mg p[o qhs. Seroquel 100mg pop qhs. Gabapentin 600mg po tiod. Vistaril 50mg po prn q4 for anxiety Psychiatric Findings - Problem List ([place] 1, 2,3) (1) Cocaine dependence Current Visit: Yes Status: Chronic Qualifiers: Substance use status: uncomplicated Qualified Code(s): F14.20 - Cocaine dependence, uncomplicated (2) Nicotine dependence Current Visit: Yes Status: Chronic Qualifiers: Nicotine product type: cigarettes Substance use status: uncomplicated Qualified Code(s): F17.210 - Nicotine dependence, cigarettes, uncomplicated (3) Opioid dependence with withdrawal Current Visit: Yes Status: Chronic (4) Drug-induced mood disorder Current Visit: No Status: Acute (5) Substance-induced sleep disorder Current Visit: No Status: Acute (6) Alcohol dependence with uncomplicated withdrawal Current Visit: No Status: Chronic - Initial Treatment Plan Initial Treatment Plan: Trazodone 150mg p[o qhs. Seroquel 100mg pop qhs. Gabapentin 600mg po tiod. Vistaril 50mg po prn q4 for anxiety
[2017-02-15 09:59] LABS: MCH 26.7 pg (25.7-33.7); MCHC 33.3 g/dl (32.0-36.0); MEAN CELL VOLUME 80.3 fl (80-96); MEAN PLT VOLUME 7.5 fl (7.5-11.1); PLATELET COUNT 348 K/MM3 (134-434); RDW 14.2 % (11.6-15.6); WHITE BLOOD COUNT 8.1 K/mm3 (4.0-10.0)
[2017-02-15] MEDS ORDERED: METHADONE HCL 10 MG TABLET (FOR DETOX USE ONLY) PO SCH (10:00)
--- NOTE | 2017-02-15 10:03 | PN ---
[facility] CIWA - CIWA Score Nausea/Vomitin Muscle Tremors: 3 Anxiety: 3 Agitation: 2 Paroxysmal Sweats: 1-Minimal Palms Moist Orientation: 0-Oriented Tacttile Disturbances: 1-Very Mild Itch/Numbness Auditory Disturbances: 1-Very Mild Visual Disturbances: 1-Very Mild Sensitivity Headache: 2-Mild CIWA-Ar Total Score: 17 BHS COWS - Scale Resting Pulse: 1= [place] 81-100 Sweatin= Chills/Flushing Restless Observation: 3= Extraneous Movement Pupil Size: 2= Moderately Dilated Bone or Joint Aches: 2= Severe Diffuse Aches Runny Nose/ Eye Tearin= Runny Nose/Eyes GI Upset > 30mins: 3= Vomiting/Diarrhea Tremor Observation of Outstretched Hands: 2= Slight Tremor Visible Yawning Observation: 1= 1-2x During Session Anxiety or Irritability: 2=Irritable/Anxious Goose Flesh Skin: 0=Smooth Skin COWS Score: 19 S Progress Note (SOAP) Subjective: ALERT,IRRITABLE,ANXIOUS,INTERRUPTED SLEEP,TREMOR,PAIN IN THE BODY AND BACK, TREMOR Objective: 02/15/17 10:01 Vital Signs Temperature 98.1 F 02/15/17 06:32 Pulse Rate 100 H 02/15/17 06:32 Respiratory Rate 20 02/15/17 06:32 Blood Pressure 140/63 02/15/17 06:32 O2 Sat by Pulse Oximetry (%) EKG NSR WITH IST DEGREE AV BLOCK Laboratory Last Values Urine Color Dkyellow 02/14/17 22:00 Urine Appearance Clear 02/14/17 22:00 Urine pH 5.0 (5.0-8.0) 02/14/17 22:00 Urine Protein Negative (NEGATIVE) 02/14/17 22:00 Urine Glucose (UA) Negative (NEGATIVE) 02/14/17 22:00 Urine Ketones Trace (NEGATIVE) H 02/14/17 22:00 Urine Blood Negative (NEGATIVE) 02/14/17 22:00 Urine Nitrite Negative (NEGATIVE) 02/14/17 22:00 Urine Bilirubin Negative (NEGATIVE) 02/14/17 22:00 Urine Urobilinogen Negative mg/dL (0.2-1.0) 02/14/17 22:00 Ur Leukocyte Esterase Negative (NEGATIVE) 02/14/17 22:00 LABS PENDING Assessment: 02/15/17 10:02 WITHDRAWAL SYMPTOM Plan: CONTINUE DETOX
[2017-02-15] MEDS: PRENATAL VITAMINS W/ FOLIC ACID TABLET (FP) PO SCH (10:20)
[2017-02-15] MEDS: PANTOPRAZOLE 40 MG TABLET (FP) PO SCH (10:21)
[2017-02-15] MEDS: NICOTINE 21 MG/24 HOURS TOPICAL PATCH TD SCH (10:21)
[2017-02-15] MEDS: SULFAMETHOXAZOLE/TRIMETHOPRIM 800MG/160MG D.S. TABLET PO SCH ×2 (10:21→22:26)
[2017-02-15 10:22] LABS: ALBUMIN 2.9 g/dl (3.4-5.0); ALK PHOS 177 U/L (45-117); ANION GAP 6 (8-16); BILIRUBIN,TOTAL 0.2 mg/dL (0.2-1.0); CALCIUM 9.6 mg/dL (8.5-10.1); CO2 29 mmol/L (21-32); GLUCOSE,RANDOM 82 mg/dL (74-106); SGOT/AST 25 U/L (15-37); SGPT/ALT 18 U/L (12-78); TOT PROT 7.9 g/dl (6.4-8.2)
[2017-02-15] MEDS: GABAPENTIN 300 MG CAPSULE (FP) PO SCH ×2 (14:14→22:26)
[2017-02-15] MEDS: chlordiazePOXIDE HCL 25 MG CAPSULE PO PRN (14:27)
--- NOTE | 2017-02-15 16:37 | EKG ---
Test Reason : Blood Pressure : / mmHG Vent. Rate : 071 BPM Atrial Rate : 071 BPM P-R Int : 210 ms QRS Dur : 094 ms QT Int : 404 ms P-R-T Axes : 042 066 046 degrees QTc Int : 439 ms SINUS RHYTHM WITH 1ST DEGREE A-V BLOCK OTHERWISE NORMAL ECG WHEN COMPARED WITH ECG OF 25-NOV-2016 17:55, DC INTERVAL HAS INCREASED Confirmed by WALI GILLIAM, DILAN ([id number]) on 02/15/2017 4:36:50 PM Referred By: Confirmed By:DILAN KEYES MD
[2017-02-15] MEDS: hydrOXYzine PAMOATE 50 MG CAPSULE (FP) PO PRN (19:06)
[2017-02-15] MEDS: THIAMINE HCL 100 MG TABLET (FP) PO SCH (22:27)
[2017-02-15] MEDS: QUEtiapine FUMARATE 100 MG TABLET (FP) PO SCH (22:27)
[2017-02-15] MEDS: traZODone HCL 50 MG TABLET (FP) PO SCH (22:27)
[2017-02-16] MEDS: chlordiazePOXIDE HCL 25 MG CAPSULE PO SCH ×2 (05:26→11:50)
[2017-02-16] MEDS: GABAPENTIN 300 MG CAPSULE (FP) PO SCH ×3 (05:27→22:23)
[2017-02-16] MEDS: NICOTINE POLACRILEX 4 MG GUM BC PRN ×3 (05:28→17:19)
[2017-02-16] MEDS ORDERED: METHADONE HCL 5 MG TABLET (FOR DETOX USE ONLY) PO SCH (10:00)
--- NOTE | 2017-02-16 10:26 | PN ---
[facility] CIWA - CIWA Score Nausea/Vomitin Muscle Tremors: 3 Anxiety: 3 Agitation: 2 Paroxysmal Sweats: 1-Minimal [place] Moist Orientation: 0-Oriented Tacttile Disturbances: 1-Very Mild Itch/Numbness Auditory Disturbances: 1-Very Mild Visual Disturbances: 1-Very Mild Sensitivity Headache: 2-Mild CIWA-Ar Total Score: 17 BHS COWS - Scale Resting Pulse: 1= [place] 81-100 Sweatin= Chills/Flushing Restless Observation: 3= Extraneous Movement Pupil Size: 1= Pupils >than Normal Bone or Joint Aches: 2= Severe Diffuse Aches Runny Nose/ Eye Tearin= Runny Nose/Eyes GI Upset > 30mins: 2= Nausea/Diarrhea Tremor Observation of Outstretched Hands: 2= Slight Tremor Visible Yawning Observation: 1= 1-2x During Session Anxiety or Irritability: 2=Irritable/Anxious Goose Flesh Skin: 0=Smooth Skin COWS Score: 17 S Progress Note (SOAP) Subjective: ALERT,IRRITABLE,ANXIOUS,INTERRUPTED SLEEP,TREMOR,PAIN N THE BODY AND BACK Objective: 02/16/17 10:25 Vital Signs Temperature 97.9 F 02/16/17 06:00 Pulse Rate 76 02/16/17 06:00 Respiratory Rate 18 02/16/17 06:00 Blood Pressure 103/68 02/16/17 06:00 O2 Sat by Pulse Oximetry (%) Laboratory Last Values WBC 8.1 K/mm3 (4.0-10.0) 02/15/17 06:30 RBC 4.14 M/mm3 (3.60-5.2) 02/15/17 06:30 Hgb 11.1 GM/dL (10.7-15.3) 02/15/17 06:30 Hct 33.2 % (32.4-45.2) 02/15/17 06:30 MCV 80.3 fl (80-96) 02/15/17 06:30 MCH 26.7 pg (25.7-33.7) 02/15/17 06:30 MCHC 33.3 g/dl (32.0-36.0) 02/15/17 06:30 RDW 14.2 % (11.6-15.6) 02/15/17 06:30 Plt Count 348 K/MM3 (134-434) D 02/15/17 06:30 MPV 7.5 fl (7.5-11.1) D 02/15/17 06:30 Sodium 137 mmol/L (136-145) 02/15/17 06:30 Potassium 4.1 mmol/L (3.5-5.1) 02/15/17 06:30 Chloride 102 mmol/L (98-107) 02/15/17 06:30 Carbon Dioxide 29 mmol/L (21-32) 02/15/17 06:30 Anion Gap 6 (8-16) L 02/15/17 06:30 BUN 13 mg/dL (7-18) 02/15/17 06:30 Creatinine 1.0 mg/dL (0.55-1.02) 02/15/17 06:30 Creat Clearance w eGFR > 60 (>60) 02/15/17 06:30 Random Glucose 82 mg/dL (74-106) 02/15/17 06:30 Calcium 9.6 mg/dL (8.5-10.1) 02/15/17 06:30 Total Bilirubin 0.2 mg/dL (0.2-1.0) D 02/15/17 06:30 AST 25 U/L (15-37) D 02/15/17 06:30 ALT 18 U/L (12-78) 02/15/17 06:30 Alkaline Phosphatase 177 U/L (45-117) H D 02/15/17 06:30 Total Protein 7.9 g/dl (6.4-8.2) 02/15/17 06:30 Albumin 2.9 g/dl (3.4-5.0) L 02/15/17 06:30 Urine Color Dkyellow 02/14/17 22:00 Urine Appearance Clear 02/14/17 22:00 Urine pH 5.0 (5.0-8.0) 02/14/17 22:00 Ur Specific [place] 1.025 (1.005-1.025) 02/14/17 22:00 Urine Protein Negative (NEGATIVE) 02/14/17 22:00 Urine Glucose (UA) Negative (NEGATIVE) 02/14/17 22:00 Urine Ketones Trace (NEGATIVE) H 02/14/17 22:00 Urine Blood Negative (NEGATIVE) 02/14/17 22:00 Urine Nitrite Negative (NEGATIVE) 02/14/17 22:00 Urine Bilirubin Negative (NEGATIVE) 02/14/17 22:00 Urine Urobilinogen Negative mg/dL (0.2-1.0) 02/14/17 22:00 Ur Leukocyte Esterase Negative (NEGATIVE) 02/14/17 22:00 RPR Titer Nonreactive (NONREACTIVE) 02/15/17 06:30 Assessment: 02/16/17 10:25 WITHDRAWAL SYMPTOM Plan: CONTINUE DETOX
[2017-02-16] MEDS: CYCLOBENZAPRINE HCL 10 MG TABLET (FP) PO PRN ×2 (11:49→19:43)
[2017-02-16] MEDS: PANTOPRAZOLE 40 MG TABLET (FP) PO SCH (11:49)
[2017-02-16] MEDS: SULFAMETHOXAZOLE/TRIMETHOPRIM 800MG/160MG D.S. TABLET PO SCH ×2 (11:50→22:23)
[2017-02-16] MEDS: NICOTINE 21 MG/24 HOURS TOPICAL PATCH TD SCH (11:52)
[2017-02-16] MEDS: PRENATAL VITAMINS W/ FOLIC ACID TABLET (FP) PO SCH (11:54)
[2017-02-16] MEDS: chlordiazePOXIDE HCL 25 MG CAPSULE PO PRN (15:43)
[2017-02-16] MEDS: chlordiazePOXIDE 5 MG CAPSULE PO SCH ×2 (17:19→22:23)
[2017-02-16] MEDS: hydrOXYzine PAMOATE 50 MG CAPSULE (FP) PO PRN (18:38)
[2017-02-16] MEDS: traZODone HCL 50 MG TABLET (FP) PO SCH (22:23)
[2017-02-16] MEDS: QUEtiapine FUMARATE 100 MG TABLET (FP) PO SCH (22:23)
[2017-02-16] MEDS: THIAMINE HCL 100 MG TABLET (FP) PO SCH (22:26)
[2017-02-17] MEDS: chlordiazePOXIDE 5 MG CAPSULE PO SCH ×2 (05:11→10:37)
[2017-02-17] MEDS: GABAPENTIN 300 MG CAPSULE (FP) PO SCH ×3 (05:11→22:09)
[2017-02-17] MEDS: hydrOXYzine PAMOATE 50 MG CAPSULE (FP) PO PRN ×2 (08:56→17:07)
[2017-02-17] MEDS: CYCLOBENZAPRINE HCL 10 MG TABLET (FP) PO PRN ×2 (08:56→17:07)
[2017-02-17] MEDS ORDERED: METHADONE HCL 10 MG TABLET (FOR DETOX USE ONLY) PO ONE (10:00)
[2017-02-17] MEDS: SULFAMETHOXAZOLE/TRIMETHOPRIM 800MG/160MG D.S. TABLET PO SCH ×2 (10:37→22:09)
[2017-02-17] MEDS: PRENATAL VITAMINS W/ FOLIC ACID TABLET (FP) PO SCH (10:37)
[2017-02-17] MEDS: PANTOPRAZOLE 40 MG TABLET (FP) PO SCH (10:37)
[2017-02-17] MEDS: NICOTINE 21 MG/24 HOURS TOPICAL PATCH TD SCH (10:38)
[2017-02-17] MEDS: NICOTINE POLACRILEX 4 MG GUM BC PRN ×2 (10:42→14:09)
--- NOTE | 2017-02-17 11:10 | PN ---
S Progress Note (SOAP) Subjective: alert,irritable,anxious,interrupted sleep Objective: 02/17/17 11:09 Vital Signs Temperature 97.7 F 02/17/17 09:44 Pulse Rate 86 02/17/17 09:44 Respiratory Rate 18 02/17/17 09:44 Blood Pressure 104/52 02/17/17 09:44 O2 Sat by Pulse Oximetry (%) Assessment: 02/17/17 11:09 withdrawal symptom Plan: continue detox,discharge in am
[2017-02-17] MEDS: chlordiazePOXIDE HCL 25 MG CAPSULE PO PRN (14:07)
[2017-02-17 14:58] LABS: HIV 1 & 2 AB NEGATIVE; HIV 1 AGp24 NEGATIVE
[2017-02-17] MEDS ORDERED: chlordiazePOXIDE 5 MG CAPSULE ONE (16:49)
[2017-02-17] MEDS: chlordiazePOXIDE HCL 10 MG CAPSULE PO SCH ×2 (17:07→22:10)
[2017-02-17] MEDS: traZODone HCL 50 MG TABLET (FP) PO SCH (22:10)
[2017-02-17] MEDS: QUEtiapine FUMARATE 100 MG TABLET (FP) PO SCH (22:10)
[2017-02-17] MEDS: THIAMINE HCL 100 MG TABLET (FP) PO SCH (22:11)
[2017-02-17 23:17] VITALS: TEMP 97.9
[2017-02-18] MEDS ORDERED: chlordiazePOXIDE 5 MG CAPSULE ONE (04:14)
[2017-02-18] MEDS: hydrOXYzine PAMOATE 50 MG CAPSULE (FP) PO PRN (05:57)
[2017-02-18] MEDS: CYCLOBENZAPRINE HCL 10 MG TABLET (FP) PO PRN (05:57)
[2017-02-18] MEDS: NICOTINE POLACRILEX 4 MG GUM BC PRN (05:58)
[2017-02-18] MEDS: chlordiazePOXIDE HCL 10 MG CAPSULE PO SCH (05:58)
[2017-02-18] MEDS ORDERED: METHADONE HCL 5 MG TABLET (FOR DETOX USE ONLY) PO ONE (06:00)
[2017-02-18] MEDS: GABAPENTIN 300 MG CAPSULE (FP) PO SCH (06:33)
[2017-02-18 06:44] VITALS: BP 101/63; PULSE 88
--- NOTE | 2017-02-18 08:22 | DS ---
[facility] Detox Discharge Summary Admission Date: 02/14/17 Discharge Date: 02/18/17 - History Present History: Alcohol Dependence, Cocaine Dependence, Opioid Dependence Additional Comments: FOLLOW UP WITH AFTER CARE PROGRAM ARRANGEMENT Pertinent Past History: CELLULITIS BOTH LEGS GERD LOW BACK PAIN DEPRESSION NICOTINE DEPENDENCE - Physical Exam Results Vital Signs: Vital Signs Temperature 97.9 F 02/18/17 06:43 Pulse Rate 88 02/18/17 06:43 Respiratory Rate 18 02/18/17 06:43 Blood Pressure 101/63 02/18/17 06:43 O2 Sat by Pulse Oximetry (%) Pertinent Admission Physical Exam Findings: WITHDRAWAL SYMPTOM - Treatment Hospital Course: Detox Protocol Followed, Detoxed Safely, Responded well, Discharged Condition Good Patient has Accepted a Rehab Referral to: [facility]CL[facility]ED - Medication Discharge Medications: Ambulatory Orders Quetiapine Fumarate [Seroquel] 100 mg PO HS #30 tablet 09/24/14 Gabapentin [Neurontin -] 300 mg PO BID@1000,1700 #60 capsule 10/02/16 Gabapentin [Neurontin -] 600 mg PO HS #30 capsule 10/02/16 Trazodone HCl [Desyrel -] 150 mg PO HS #30 tablet 10/02/16 Hydroxyzine Pamoate [Vistaril -] 50 mg PO Q6H PRN 02/14/17 Gabapentin 600 mg PO TID #90 tablet 02/15/17 Quetiapine Fumarate [Seroquel] 100 mg PO HS #30 tablet 02/15/17 Trazodone HCl [Desyrel -] 150 mg PO HS #30 tablet 02/15/17 Pantoprazole Sodium [Protonix -] 40 mg PO DAILY #30 tab 02/18/17 Sulfamethoxazole/Trimethoprim [Bactrim DS -] 1 each PO BID #14 tablet 02/18/17 - AMA Did Patient Leave Against Medical Advice: No
[2017-02-18] MEDS ORDERED: METHADONE HCL 10 MG TABLET (FOR DETOX USE ONLY) PO SCH (10:00)
[2017-02-19] MEDS ORDERED: METHADONE HCL 5 MG TABLET (FOR DETOX USE ONLY) PO SCH (06:00)
== END 2017-02-18 09:23 | disposition home or self-care (01) | DRG 773 ==
LOC: YASAS 09:42 → Y6N 17:06
PROVIDERS: ADMIT Internal Medicine Addiction Medicine; ATTEND Internal Medicine Addiction Medicine
PROC: HZ2ZZZZ Detoxification Services for Substance Abuse Treatment (ICD-10-PCS; principal; 2017-02-18)
DX: F11.23 Opioid dependence with withdrawal (principal); F10.230 Alcohol dependence with withdrawal, uncomplicated; F14.20 Cocaine dependence, uncomplicated; F17.210 Nicotine dependence, cigarettes, uncomplicated; F32.9 Major depressive disorder, single episode, unspecified; F19.24 Other psychoactive substance dependence with psychoactive substance-induced mood disorder; F19.282 Other psychoactive substance dependence with psychoactive substance-induced sleep disorder; K21.9 Gastro-esophageal reflux disease without esophagitis; M54.5 Low back pain; L03.116 Cellulitis of left lower limb; L03.115 Cellulitis of right lower limb
CPT/HCPCS: 36415; 80053; 81003; 85027; 86593; 87389; 93005; 93010

== ENCOUNTER 2023-03-23 13:30 | Inpatient (IN) | payer OTHER ==
[2023-03-23 13:35] VITALS: BMI 23.3
[2023-03-23] MEDS ORDERED: chlordiazePOXIDE HCL 25 MG CAPSULE PO ONE (14:41)
[2023-03-23] MEDS ORDERED: VANCOMYCIN HCL 1,500 MG in DEXTROSE 5%-WATER - 500 ML IVPB ONE (15:08)
[2023-03-23] MEDS ORDERED: CEFEPIME HCL 1 GM VIAL (RESTRICTED TO ID) IVPB ONE (15:15)
[2023-03-23 15:23] LABS: BASO % 0.6 % (0-2.0); EOS % 2.5 % (0-4.5); HEMATOCRIT 27.2 % (32.4-45.2); HEMOGLOBIN 8.6 GM/dL (10.7-15.3); LYMPH % 32.3 % (8-40); MCH 23.5 pg (25.7-33.7); MCHC 31.6 g/dl (32.0-36.0); MEAN CELL VOLUME 74.4 fl (80-96); MEAN PLT VOLUME 7.5 fl (7.5-11.1); NEUT % 56.6 % (42.8-82.8); PLATELET COUNT 324 10^3/uL (134-434); RBC 3.65 M/mm3 (3.60-5.2); RDW 23.9 % (11.6-15.6); WHITE BLOOD COUNT 6.3 K/mm3 (4.0-10.0)
[2023-03-23 15:30] LABS: EPI CELLS 7 /uL (0-25.1); HYALINE CASTS 0 /uL (0-3.1); PH,URINE 7.5 (5.0-8.0); URINE APPEARANCE CLEAR; URINE BACTERIA 36 /uL (0-1359); URINE BILIRUBIN NEGATIVE (NEGATIVE); URINE COLOR YELLOW; URINE GLUCOSE (UA) NEGATIVE (NEGATIVE); URINE KETONE NEGATIVE (NEGATIVE); URINE LEUK ESTERASE NEGATIVE (NEGATIVE); URINE NITRITE NEGATIVE (NEGATIVE); URINE PROTEIN NEGATIVE (NEGATIVE); URINE UROBILINOGEN 0.2 mg/dL (0.2-1.0); URINE WBC 3 /uL (0-25.8)
[2023-03-23 15:33] LABS: INR 1.13 (0.83-1.09); PROTHROMBIN TIME (PATIENT) 13.1 SEC (9.7-13.0)
[2023-03-23 15:36] LABS: ACTIVATED PTT 23.2 SECONDS (25.2-36.5)
[2023-03-23 15:39] LABS: URINE RBC 64.4 /uL (0-23.9); YEAST NEGATIVE (NEGATIVE)
[2023-03-23 15:43] LABS: ANISOCYTOSIS 2+; MACROCYTOSIS 0; OVALOCYTE 1+
[2023-03-23 15:44] LABS: METHADONE, UR NEGATIVE (NEGATIVE); PHENCYCLIDINE,URINE NEGATIVE (NEGATIVE)
[2023-03-23 15:44] LABS: CHLORIDE 105 mmol/L (98-107); POTASSIUM 3.9 mmol/L (3.5-5.1); SODIUM 139 mmol/L (136-145)
[2023-03-23 15:45] LABS: URINE AMPHETAMINES NEGATIVE (NEGATIVE)
[2023-03-23 15:47] LABS: COCAINE, UR POSITIVE (NEGATIVE); OPIATES, URI POSITIVE (NEGATIVE); URINE BARBITURATES NEGATIVE (NEGATIVE); URINE BENZODIAZEPINES NEGATIVE (NEGATIVE)
[2023-03-23 15:48] LABS: ALBUMIN 2.7 g/dl (3.4-5.0); ANION GAP 7 MMOL/L (8-16); CO2 27 mmol/L (21-32); GLUCOSE,RANDOM 95 mg/dL (74-106)
[2023-03-23 15:51] LABS: CREATININE 1.3 mg/dL (0.55-1.3); SGOT/AST 24 U/L (15-37); SGPT/ALT 12 U/L (13-61)
[2023-03-23 15:52] LABS: BILIRUBIN,TOTAL 0.6 mg/dL (0.2-1); TOT PROT 9.3 g/dl (6.4-8.2)
[2023-03-23 15:54] LABS: ALK PHOS 164 U/L (45-117)
[2023-03-23 16:00] LABS: ERYTHROCYTE SEDIMENTATION RATE 106 mm/hr (0-20)
[2023-03-23] MEDS ORDERED: CEFEPIME 1 GM/100 ML BAG IVPB ONE (17:54)
[2023-03-23] MEDS ORDERED: chlordiazePOXIDE HCL 25 MG CAPSULE ONE (17:54)
[2023-03-23] MEDS ORDERED: VANCOMYCIN/WATER 1250 MG 1,250 MG/250 ML BAG IVPB ONE (18:18)
[2023-03-23] MEDS ORDERED: ENOXAPARIN NA (PORCINE) 60 MG/0.6 ML DISP.SYRIN SQ ONE ×2 (19:42→19:45)
[2023-03-23] MEDS ORDERED: ENOXAPARIN NA (PORCINE) 60 MG/0.6 ML DISP.SYRIN SQ SCH (19:45)
[2023-03-23] MEDS ORDERED: LORazepam 2 MG/ML SDV VIAL IVPUSH ONE (20:00)
[2023-03-23] MEDS ORDERED: FOLIC ACID INJECTION - 1 MG, THIAMINE HCL 100 MG, MULTIVIT INJECTION ADULT 10 ML in SOD... IVPB ONE (21:48)
[2023-03-23] MEDS ORDERED: LORazepam 1 MG TABLET PO PRN (22:14)
[2023-03-23] MEDS: LORazepam 2 MG TABLET PO SCH ×2 (22:32→22:43)
[2023-03-23] MEDS ORDERED: LORazepam 1 MG TABLET ONE (22:35)
[2023-03-23 22:37] LABS: IRON SERUM 20 ug/dL (50-175); TOTAL IRON BINDING CAPACITY 264 ug/dL (250-450)
[2023-03-24] MEDS ORDERED: MEROPENEM 500 MG VIAL (RESTRICTED TO ID) IVPB ONE ×2 (01:08→10:38)
[2023-03-24] MEDS: MEROPENEM 500 MG in DEXTROSE 5%-WATER 100 ML IVPB SCH ×2 (01:22→10:59)
[2023-03-24] MEDS ORDERED: MEROPENEM 500 MG in DEXTROSE 5%-WATER 100 ML IVPB SCH (02:00)
[2023-03-24 02:16] VITALS: BP 100/55; PULSE 89; RESP 16; TEMP 99.1
[2023-03-24] MEDS ORDERED: VANCOMYCIN 1 GRAM (PRE-DOCKED) 1,000 MG/250 ML BAG IVPB ONE (05:27)
[2023-03-24] MEDS ORDERED: LORazepam 1 MG TABLET ONE ×3 (05:47→12:04)
[2023-03-24] MEDS: LORazepam 1 MG TABLET PO SCH ×2 (05:56→12:08)
[2023-03-24] MEDS ORDERED: VANCOMYCIN/WATER FOR INJ (PEG) 1,000 MG/200 ML BAG IVPB ONE (06:00)
[2023-03-24] MEDS ORDERED: VANCOMYCIN 1,000 MG in DEXTROSE 5%-WATER - 250 ML IVPB SCH (06:00)
[2023-03-24 08:25] LABS: HEMATOCRIT 24.3 % (32.4-45.2); HEMOGLOBIN 7.8 GM/dL (10.7-15.3); MCH 23.5 pg (25.7-33.7); MCHC 31.9 g/dl (32.0-36.0); MEAN CELL VOLUME 73.7 fl (80-96); MEAN PLT VOLUME 7.3 fl (7.5-11.1); PLATELET COUNT 289 10^3/uL (134-434); RDW 23.4 % (11.6-15.6); RETICULOCYTES 0.68 % (0.5-1.5); WHITE BLOOD COUNT 5.2 K/mm3 (4.0-10.0)
[2023-03-24] MEDS ORDERED: methaDONE HCL 10 MG TABLET ONE (08:43)
[2023-03-24] MEDS ORDERED: methaDONE HCL 10 MG TABLET PO ONE (09:00)
[2023-03-24] MEDS ORDERED: ENOXAPARIN NA (PORCINE) 60 MG/0.6 ML DISP.SYRIN SQ SCH (10:00)
[2023-03-24] MEDS ORDERED: ENOXAPARIN NA (PORCINE) 80 MG/0.8 ML DISP.SYRIN SQ SCH (10:00)
[2023-03-24] MEDS ORDERED: NICOTINE 21 MG/24 HOURS TOPICAL PATCH TD SCH (10:00)
[2023-03-24] MEDS ORDERED: FOLIC ACID 1 MG TABLET (FP) PO SCH (10:00)
[2023-03-24] MEDS ORDERED: THIAMINE HCL 100 MG TABLET (FP) PO SCH (10:00)
[2023-03-24] MEDS ORDERED: THIAMINE HCL 100 MG TABLET (FP) ONE (10:38)
[2023-03-24] MEDS ORDERED: NICOTINE 21 MG/24 HOURS TOPICAL PATCH ONE (10:38)
[2023-03-24] MEDS ORDERED: FOLIC ACID 1 MG TABLET (FP) ONE (10:38)
[2023-03-24] MEDS ORDERED: ENOXAPARIN NA (PORCINE) 80 MG/0.8 ML DISP.SYRIN SQ ONE (10:39)
[2023-03-25] MEDS ORDERED: LORazepam 0.5 MG TABLET PO PRN
[2023-03-25] MEDS ORDERED: LORazepam 0.5 MG TABLET PO SCH (05:00)
[2023-03-26] MEDS ORDERED: LORazepam 0.5 MG TABLET PO ONE (05:00)
== END 2023-03-24 13:42 | disposition left against medical advice (07) | DRG 383 ==
LOC: JER 13:30 → JERBED 20:06
PROVIDERS: ADMIT Internal Medicine; ATTEND Internal Medicine
DX: L03.115 Cellulitis of right lower limb (principal); I82.403 Acute embolism and thrombosis of unspecified deep veins of lower extremity, bilateral; I82.411 Acute embolism and thrombosis of right femoral vein; D50.9 Iron deficiency anemia, unspecified; F17.210 Nicotine dependence, cigarettes, uncomplicated; L03.116 Cellulitis of left lower limb
CPT/HCPCS: 36415; 71045-TC-FY; 73590-TC-LT-FY; 73590-TC-RT-FY; 73610-TC-LT-FY; 73610-TC-RT-FY; 73630-TC-LT; 73630-TC-RT-FY; 80053; 80307; 81003; 83540; 83550; 84703; 85025; 85027; 85045; 85610; 85651; 85730; 86140; 87086; 93005; 93010; 93970-TC; 99285-25